=== PATIENT | female | born 1985 | race Caucasian/White ===

== ENCOUNTER 2025-02-04 07:16 | Day surgery (SDC) | payer OTHER, SELFPAY ==
--- NOTE | 2025-01-27 14:22 | PCM.HP.BLA ---
History and Physical Date of Admission: 02/04/25 HPI: The patient is a 39 year old female presenting for pre-operative visit. She is scheduled for hysteroscopy D&C with IUD Insertion, for aub and submucosal fibroid on 02/04/25. Procedure discussed along with risks, benefits and complications. Other alternatives discussed for management. Consent form signed? Yes. PAST MEDICAL HISTORY History reviewed. No pertinent past medical history. PAST SURGICAL HISTORY PAST SURGICAL HISTORYProcedureLateralityDate•NONE CURRENT MEDICATIONS Current Outpatient MedicationsMedicationSigDispenseRefill•ergocalciferol 50,000 unit capsule (VITAMIN D2, DRISDOL) •norgestimate-ethinyl estradiol (SPRINTEC) 0.25-0.035 mg tabletTake 1 tablet by mouth once daily.84 tablet4•ascorbic acid (VITAMIN C ORAL)Take by mouth once daily. •MAGNESIUM ORALTake by mouth once daily. •elderberry fruit (ELDERBERRY ORAL)Take by mouth once daily. •miSOPROStol (CYTOTEC) 200 mcg tabletInsert 2 tablets vaginally night prior to EMB and 2 tablets morning of procedure. Each dose should be in vagina for 6-8 hours.4 tablet0 No current facility-administered medications for this visit. ALLERGIES: Patient has no known allergies. PERSONAL HISTORY: [SOCIAL HISTORY] [SOCIAL HISTORY] Social History Tobacco Use • Smoking status: Former • Smokeless tobacco: Never Vaping Use • Vaping status: Never Used Substance Use Topics • Alcohol use: Yes Comment: occasional • Drug use: Not Currently FAMILY HISTORY: FAMILY HISTORY FAMILY HISTORY ProblemRelationAge of Onset•HypertensionMother •No Known ProblemsFather •No Known ProblemsSister •HypertensionMaternal Grandmother •Crohn's DiseaseMaternal Grandfather •No Known ProblemsPaternal Grandmother •No Known ProblemsPaternal Grandfather REVIEW OF SYMPTOMS: GENERAL: denies fevers or chills ENDOCRINOLOGY: has not been on steroids Cardiology : denies palpitations or chest pain Respiratory: denies SOB or cough Hematology: denies history of prolonged bleeding or easy bruising or VTE Allergy: Denies history of personal or family history of allergy to anesthesia PHYSICAL EXAMINATION: VITALS: Blood pressure 116/64, pulse 81, height 170.2 cm (5' 7"), weight 97.5 kg (215 lb), last menstrual period 01/19/2025, SpO2 98%. GENERAL: The patient is well nourished, well hydrated in no acute distress. , The patient is oriented to time, place, and person. NECK: Supple. No lynphadenopathy, normal thyroid, no thyromegaly. LUNGS: Clear to auscultation bilaterally. no wheezes, rhonchi or rales HEART: Regular rate and rhythm, Normal heart sounds, and No murmurs or gallops Pelvic US: Impression The uterus is anteverted and measures 96 mm x 36 mm x 49 mm. The endometrial thickness is 9 mm. There is a submucous, visualized without fluid enhancement, fibroid that measures 12 mm x 9 mm x 11 mm. The right ovary measures 36 mm x 18 mm x 16 mm. The left ovary measures 25 mm x 22 mm x 19 mm and contains a 21 mm x 20 mm x 19 mm bilocular cyst (single avascular septation) with smooth borders. IMPRESSION: submucosal uterine fibroid, abnormal uterine bleeding and IUD insertion PLAN: The risks/benefits/alternatives and personal involved for the planned hysteroscopy D&C with fibroid resection and IUD insertion were reviewed with the patient. Her questions were answered to her satisfaction and she desires to proceed. Consent was signed. I reviewed with her postop instructions and expectations. I have reviewed and updated past medical and surgical history, medications and allergies Assessment & Plan Assessment/Plan (1) Submucous uterine fibroid: (2) Menorrhagia with regular cycle: (3) Encounter for IUD insertion:
[2025-02-04] VITALS (9 sets, daily range): BP systolic 108–129; BP diastolic 58–83; PULSE 60–79; RESP 16–18; TEMP 36.2–36.7; O2SAT 94–100; BMI 32.8
--- OUTSIDE RECORDS SUMMARY | 2025-02-04 07:36 | XMS RPT_ITS | CCD ---
Author Organization [facility] Inform ion Partnership [facility] Care Team Providers Care Delinquency Prevention Social Worker Name Role Phone zEntity, Lab Wellness Unavailable Unavailabl e Unavailable Primary Care Provider Unavailabl e Unavailable Primary Care Provider Unavailabl e Unavailable Primary Care Provider Unavailabl e JOCELYNE ABRAHAM Referring Unavailable JOCELYNE ABRAHAM Attending Unavailable CONNER CARRERO Attending Unavailable NANY BONILLA Attending Unavailable JOCELYNE ABRAHAM Referring Unavailable JOCELYNE ABRAHAM Referring Unavailable Conner Carrero Referring Unavailable Conner Carrero Attending Unavailable Care Physician, No Primary Primary Care Unava ilable Medications Current Medications Medication Drug Class(es) Dates Sig (Normalized) Sig (Original) Ascorbic Acid (3 sources) Vitamin C ascorbic acid (V ITAMIN C ORAL) Take by mouth once daily. Active ascorbic acid (V ITAMIN C ORAL) Take by mouth once daily. 0 Active ELDERBERRY FRUIT (3 sources) elderberry fruit (ELDERBERRY ORAL) Take by mouth once daily. Active elderberry fruit (ELDERBERRY ORAL) Take by mouth once daily. 0 Active Ethinyl Estradiol / norgestimate (8 sources) Progestin, Estrogen Start: 11-19-2024 norgestimate-ethinyl estradiol (SPRINTEC) 0.25-0.035 mg tablet Indications: Encounter for gynecological examination with abnormal finding , Surveillance for control, oral contraceptives Take 1 tablet by mouth once daily. 84 tablet 4 11/19/2024 Active Start: 11-15-2023 End: 11-19-2024 take 1 tablet by mouth once daily norgestimate 0.25 mg-ethinyl estradiol 35 mcg (SPRINTEC) 0.25-35 mg-mcg per tablet Indications: Encounter for gynecological examination (general) (routine) without abnormal findings , Surveillance for control, oral contraceptives Take 1 tablet by mouth once daily. 84 tablet 4 11/15/2023 11/19/2024 Discontinued Start: 11-15-2023 take 1 tablet by yue th once daily norgestimate 0.25 mg-ethinyl estradiol 35 mcg (SPRINTEC) 0.25-35 mg-mcg per tablet Indications: Encounter for gynecological examination (general) (routine) without abnormal findings , Surveillance for control, oral contraceptives Take 1 tablet by mouth once daily. 84 tablet 4 11/15/2023 Active Start: 10-07-2023 End: 11-15-2023 take 1 tablet by mouth once daily norgestimate 0.25 mg-ethinyl estradiol 35 mcg (SPRINTEC) 0.25-35 mg-mcg per tablet Indications: Encounter for gynecological examination (general) (routine) without abnormal findings , Surveillance for control, oral contraceptives Take 1 tablet by mouth once daily. 84 tablet 0 10/07/2023 11/15/2023 Discontinued Start: 10-10-2022 take 1 tablet by yue th once daily norgestimate 0.25 mg-ethinyl estradiol 35 mcg (SPRINTEC) 0.25-35 mg-mcg per tablet Indications: Encounter for gynecological examination (general) (routine) without abnormal findings , Surveillance for control, oral contraceptives Take 1 tablet by mouth once daily. 84 tablet 4 10/10/2022 Active Start: 08-22-2021 End: 10-10-2022 take 1 tablet by mouth once daily norgestimate 0.25 mg-ethinyl estradiol 35 mcg (SPRINTEC) 0.25-35 mg-mcg per tablet Indications: Surveillance for control, oral contraceptives Take 1 tablet by mouth once daily. 84 tablet 4 08/22/2021 10/10/2022 Discontinued Start: 08-22-2021 take 1 tablet by yue th once daily norgestimate 0.25 mg-ethinyl estradiol 35 mcg (SPRINTEC) 0.25-35 mg-mcg per tablet Indications: Surveillance for control, oral contraceptives Take 1 tablet by mouth once daily. 84 tablet 4 08/22/2021 Active Comment on above: Take 1 tablet by yue th once daily. Magnesium (3 sources) MAGNESIUM ORAL T catarina by mouth once daily. Active MAGNESIUM ORAL T catarina by mouth once daily. 0 Active miSOPROStol 0.2 mg oral tablet (2 sources) Prostaglandin E1 Analog Start: 11-19-2024 miSOPR OStol (CYTOTEC) 200 mcg tablet Indications: Abnormal uterine bleeding (AUB) Insert 2 tablets vaginally night prior to EMB and 2 tablets morning of procedure. Each dose should be in vagina for 6-8 hours. 4 tablet 11/19/2024 Active Completed/Discontinued Medications Medication Drug Class(es) Dates Sig (Normalized) Sig (Original) ASHWAGANDHA ROOT EXTRACT ORAL (2 sources) End: 11-19-2024 ASHWAGANDHA ROOT EXTRACT ORAL Take by mouth once daily. gummy 11/19/2024 Discontinued ASHWAGANDHA ROOT EXTRACT ORAL Take by mouth once daily. gummy 0 Active Problems Problem Classification Problem Date Documented Date Episodic/Chronic Abdominal pain (2 sources) Pain in pelvis; Translations: [Pelvic and perineal pain] Onset: 11-19-2024 11-19-2024 Episodic Benign neoplasm of uterus (5 sources) Submucous leiomyoma of uterus; Translations: [Submucous leiomyoma of uterus] Onset: 12-08-2024 12-08-2024 Episodic Contraceptive and procreative management (5 sources) Oral contraception; Translations: [Encounter for surveillance of contraceptive pills] Onset: 11-19-2024 10-10-2022 Episodic Immunizations and screening for infectious disease (1 source) Patient encounter status; Translations: [Encounter for screening for infections with a predominantly sexual mode of transmission] Episodic Menstrual disorders (5 sources) Secondary dysmenorrhea; Translations: [Secondary dysmenorrhea] Onset: 11-19-2024 11-19-2024 Chronic Other female genital disorders (4 sources) Abnormal uterine bleeding; Translations: [Abnormal uterine and vaginal bleeding, unspecified] 11-19-2024 Chronic Other female genital disorders (1 source) Abnormal uterine and vaginal bleeding, unspecified; Translations: [Abnormal uterine bleeding (AUB)] Onset: 11-19-2024 Chronic Other nutritional; endocrine; and metabolic disorders (1 source) Obesity; Translations: [Obesity, unspecified] 10-10-2022 Chronic Ovarian cyst (2 sources) Complex cyst of left ovary; Translations: [Other ovarian cyst, left side] Onset: 12-08-2024 12-08-2024 Episodic Viral infection (1 source) Genital warts; Translations: [Anogenital (venereal) warts] Episodic Results Test Name Value Interpretation Reference Range Facility [facility] 01-27-2025 CNOV Office Visit (OBGYWM ) BILLIEJEN ([id number]) 1985 F Date Time Provider Department 01/27/25 8:30 AM CONNER CARRERO OBGYWM During your visit today, we recorded the following information about you: Pulse Blood pressure Weight Height 81/minute 116/64 97.5 kg 1.702 m Last Period 01/19/25 Conner Carrero MD 01/27/2025 2:21 PM Signed Pre-Op History and Physical HPI: The patient is a 39 year old female presenting for pre-operative visit. She is scheduled for hysteroscopy [facility] with IUD Insertion, for aub and submucosal fibroid on 02/04/25. Procedure discussed along with risks, benefits and complications. Other alternatives discussed for management. Consent form signed? Yes. History reviewed. No pertinent past medical history. PAST SURGICAL HISTORY Procedure Laterality Date NONE Current Outpatient Medications Medication Sig Dispense Refill ergocalciferol 50,000 unit capsule (VITAMIN D2, DRISDOL) norgestimate-ethinyl estradiol (SPRINTEC) 0.25-0.035 mg tablet Take 1 tablet by mouth once daily. 84 tablet 4 ascorbic acid (VITAMIN C ORAL) Take by mouth once daily. MAGNESIUM ORAL Take by mouth once daily. elderberry fruit (ELDERBERRY ORAL) Take by mouth once daily. miSOPROStol (CYTOTEC) 200 mcg tablet Insert 2 tablets vaginally night prior to EMB and 2 tablets morning of procedure. Each dose should be in vagina for 6-8 hours. 4 tablet 0 No current facility-administered medications for this visit. ALLERGIES: Patient has no known allergies. PERSONAL HISTORY: SOCIAL HISTORY[1] FAMILY HISTORY: FAMILY HISTORY Problem Relation Age of Onset Hypertension Mother No Known Problems Father No Known Problems Sister Hypertension Maternal Grandmother Crohn's Disease Maternal Grandfather No Known Problems Paternal Grandmother No Known Problems Paternal Grandfather REVIEW OF SYMPTOMS: GENERAL: denies fevers or chills ENDOCRINOLOGY: has not been on steroids Cardiology : denies palpitations or chest pain Respiratory: denies SOB or cough Hematology: denies history of prolonged bleeding or easy bruising or VTE Allergy: Denies history of personal or family history of allergy to anesthesia PHYSICAL EXAMINATION: VITALS: Blood pressure 116/64, pulse 81, height 170.2 cm (5' 7"), weight 97.5 kg (215 lb), last menstrual period 01/19/2025, SpO2 98%. GENERAL: The patient is well nourished, well hydrated in no acute distress. , The patient is oriented to time, place, and person. NECK: Supple. No lynphadenopathy, normal thyroid, no thyromegaly. LUNGS: Clear to auscultation bilaterally. no wheezes, rhonchi or rales HEART: Regular rate and rhythm, Normal heart sounds, and No murmurs or gallops Pelvic US: Impression The uterus is anteverted and measures 96 mm x 36 mm x 49 mm. The endometrial thickness is 9 mm. There is a submucous, visualized without fluid enhancement, fibroid that measures 12 mm x 9 mm x 11 mm. The right ovary measures 36 mm x 18 mm x 16 mm. The left ovary measures 25 mm x 22 mm x 19 mm and contains a 21 mm x 20 mm x 19 mm bilocular cyst (single avascular septation) with smooth borders. IMPRESSION: submucosal uterine fibroid, abnormal uterine bleeding and IUD insertion PLAN: The risks/benefits/alternatives and personal involved for the planned hysteroscopy [facility] with fibroid resection and IUD insertion were reviewed with the patient. Her questions were answered to her satisfaction and she desires to proceed. Consent was signed. I reviewed with her postop instructions and expectations. I have reviewed and updated past medical and surgical history, medications and allergies Conner Carrero M.D. [1] Social History Tobacco Use Smoking status: Former Smokeless tobacco: Never Vaping Use Vaping status: Never Used Substance Use Topics Alcohol use: Yes Comment: occasional Drug use: Not Currently Conner Carrero MD 01/27/2025 2:21 PM Signed Obstetrics and Gynecology [place] [employer] Visit Subjective Recording using ambient Jobzella software for draft documentation of the visit was discussed with the patient/authorized safety representative; all questions welcomed and answered. Patient/authorized safety representative agreed to proceed CHIEF COMPLAINT: The patient is a 39-year-old female with uterine fibroids and menorrhagia, presenting for preoperative evaluation and scheduled hysteroscopic myomectomy with levonorgestrel-releasing IUD placement. HPI: The patient is a 39-year-old female with a history of heavy menstrual bleeding and fibroids presenting for a pre-operative consultation. Menstrual History - Reports a change in menstrual flow since September, with periods previously lasting 4-5 days and being regular to light. - Over the past few months, periods have become "heavy to regular." - Currently experiencing prolonged bleeding, stating, I started last (more content not included)... Normal [facility] HISTORY PHYSICALon HISTORY PHYSICAL HNO ID: [id number] Author: CONNER CARRERO MD Service: ? Author Type: Physician Type: H&P Filed: 01/27/2025 14:21 Note Text: Pre-Op History and Physical HPI: The patient is a 39 year old female presenting for pre-operative visit. She is scheduled for hysteroscopy [facility] with IUD Insertion, for aub and submucosal fibroid on 02/04/25. Procedure discussed along with risks, benefits and complications. Other alternatives discussed for management. Consent form signed? Yes. History reviewed. No pertinent past medical history. PAST SURGICAL HISTORY Procedure Laterality Date NONE Current Outpatient Medications Medication Sig Dispense Refill ergocalciferol 50,000 unit capsule (VITAMIN D2, DRISDOL) norgestimate-ethinyl estradiol (SPRINTEC) 0.25-0.035 mg tablet Take 1 tablet by mouth once daily. 84 tablet 4 ascorbic acid (VITAMIN C ORAL) Take by mouth once daily. MAGNESIUM ORAL Take by mouth once daily. elderberry fruit (ELDERBERRY ORAL) Take by mouth once daily. miSOPROStol (CYTOTEC) 200 mcg tablet Insert 2 tablets vaginally night prior to EMB and 2 tablets morning of procedure. Each dose should be in vagina for 6-8 hours. 4 tablet 0 No current facility-administered medications for this visit. ALLERGIES: Patient has no known allergies. PERSONAL HISTORY: SOCIAL HISTORY[1] FAMILY HISTORY: FAMILY HISTORY Problem Relation Age of Onset Hypertension Mother No Known Problems Father No Known Problems Sister Hypertension Maternal Grandmother Crohn's Disease Maternal Grandfather No Known Problems Paternal Grandmother No Known Problems Paternal Grandfather REVIEW OF SYMPTOMS: GENERAL: denies fevers or chills ENDOCRINOLOGY: has not been on steroids Cardiology : denies palpitations or chest pain Respiratory: denies SOB or cough Hematology: denies history of prolonged bleeding or easy bruising or VTE Allergy: Denies history of personal or family history of allergy to anesthesia PHYSICAL EXAMINATION: VITALS: Blood pressure 116/64, pulse 81, height 170.2 cm (5' 7"), weight 97.5 kg (215 lb), last menstrual period 01/19/2025, SpO2 98%. GENERAL: The patient is well nourished, well hydrated in no acute distress. , The patient is oriented to time, place, and person. NECK: Supple. No lynphadenopathy, normal thyroid, no thyromegaly. LUNGS: Clear to auscultation bilaterally. no wheezes, rhonchi or rales HEART: Regular rate and rhythm, Normal heart sounds, and No murmurs or gallops Pelvic US: Impression The uterus is anteverted and measures 96 mm x 36 mm x 49 mm. The endometrial thickness is 9 mm. There is a submucous, visualized without fluid enhancement, fibroid that measures 12 mm x 9 mm x 11 mm. The right ovary measures 36 mm x 18 mm x 16 mm. The left ovary measures 25 mm x 22 mm x 19 mm and contains a 21 mm x 20 mm x 19 mm bilocular cyst (single avascular septation) with smooth borders. IMPRESSION: submucosal uterine fibroid, abnormal uterine bleeding and IUD insertion PLAN: The risks/benefits/alternatives and personal involved for the planned hysteroscopy [facility] with fibroid resection and IUD insertion were reviewed with the patient. Her questions were answered to her satisfaction and she desires to proceed. Consent was signed. I reviewed with her postop instructions and expectations. I have reviewed and updated past medical and surgical history, medications and allergies Conner Carrero M.D. [1] Social History Tobacco Use Smoking status: Former Smokeless tobacco: Never Vaping Use Vaping status: Never Used Substance Use Topics Alcohol use: Yes Comment: occasional Drug use: Not Currently Normal [facility] ([id number]) 1985 F Date Time Provider Department 12/29/24 NANY BONILLA During your visit today, we recorded the following information about you: RamosMarisa 12/29/2024 2:43 PM Signed Patient called the office for status update on scheduling her surgery. She states that she was to be contacted by the office last week. Please contact patient to assist. Jen Mccallum RN 12/29/2024 2:52 PM Signed Called and spoke to patient. Advised that surgery scheduling is taking a little more time with the volume of surgery cases with it being the end of the year. Aware the spares scheduler will reach out to her with the next available dates. GENI Quiñonez Annalee, LPN 12/30/2024 2:37 PM Signed Patient preferred a for surgery and is scheduled on 02/04/2025 Allergies As of Date: 12/29/2024 (No Known Allergies) Date Reviewed: 12/17/2024 Reviewed by: Nany Bonilla MD - Fully Assessed Reason for Visit: Appointment [[id number]] Cmt: Schedule Surgery Prescriptions as of 01/12/2025 - norgestimate-ethinyl estradiol (SPRINTEC) 0.25-0.035 mg tablet Take 1 tablet by mouth once daily. - miSOPROStol (CYTOTEC) 200 mcg tablet Insert 2 tablets vaginally night prior to EMB and 2 tablets morning of procedure. Each dose should be in vagina for 6-8 hours. - ascorbic acid (VITAMIN C ORAL) Take by mouth once daily. - MAGNESIUM ORAL Take by mouth once daily. - elderberry fruit (ELDERBERRY ORAL) Take by mouth once daily. Problem List As Of Date 12/29/2024 Noted Resolved Complex cyst of left ovary [N83.292] 12/08/2024 Submucous uterine fibroid [D25.0] 12/08/2024 Encounter Status:Closed by BLOSSOM LONG on 01/12/25 Normal [facility] CNOVon 12-17-2024 CNOV Office Visit (OBGYWM ) JEN WISE ([id number]) 1985 F Date Time Provider Department 12/17/24 2:50 PM NANY BONILLA OBGYWM During your visit today, we recorded the following information about you: Blood pressure Weight 120/80 96.8 kg Nany Bonilla MD 12/17/2024 2:57 PM Signed Obstetrics and Gynecology [place] [employer] Visit Subjective Recording using FarmBot software for draft documentation of the visit was discussed with the patient/authorized safety representative; all questions welcomed and answered. Patient/authorized safety representative agreed to proceed CHIEF COMPLAINT: The patient is a 39-year-old female presenting for evaluation of heavy menstrual bleeding and intermenstrual spotting secondary to a submucosal uterine fibroid. HPI: The patient is a 39-year-old female presenting for evaluation of heavy menstrual bleeding and intermenstrual bleeding. Menstrual History - Reports heavy menstrual bleeding and intermenstrual bleeding since June or July. - During her annual exam with Jocelyne Abraham, she reported heavy bleeding and bleeding between menstrual cycles. Past Diagnostic Results - Pelvic ultrasound: Revealed a submucous fibroid measuring 12mm x 9mm x 11mm. HISTORY: OB History Gravida1 Para0 Term0 Preterm0 AB0 Living1 SAB0 IAB0 Ectopic0 Multiple0 Live Births1 [employer] History LMP: 11/06/2024, Having periods Age at Menarche: 13 Age at First : Age at Menopause: [employer] History Comments: Sexual Activity: Yes; Male Contraception: Pill Menstrual Tracking History Flowsheet Row Office Visit from 11/19/2024 in OB/Gynecology Period Cycle (Days) 5 Period Duration (Days) 5 Menstrual Flow Heavy No past medical history on file. PAST SURGICAL HISTORY Procedure Laterality Date NONE FAMILY HISTORY Problem Relation Age of Onset Hypertension Mother No Known Problems Father No Known Problems Sister Hypertension Maternal Grandmother Crohn's Disease Maternal Grandfather No Known Problems Paternal Grandmother No Known Problems Paternal Grandfather SOCIAL HISTORY[1] Current Outpatient Medications Medication Sig norgestimate-ethinyl estradiol (SPRINTEC) 0.25-0.035 mg tablet Take 1 tablet by mouth once daily. ascorbic acid (VITAMIN C ORAL) Take by mouth once daily. MAGNESIUM ORAL Take by mouth once daily. elderberry fruit (ELDERBERRY ORAL) Take by mouth once daily. miSOPROStol (CYTOTEC) 200 mcg tablet Insert 2 tablets vaginally night prior to EMB and 2 tablets morning of procedure. Each dose should be in vagina for 6-8 hours. No current facility-administered medications for this visit. ALLERGIES No Known Allergies REVIEW OF SYSTEMS: Genitourinary: (+) heavy menstrual bleeding, (+) intermenstrual bleeding Objective SENSITIVE EXAM: Sensitive exam not performed. PHYSICAL EXAM: BP 120/80 Wt 213 lb 6.4 oz (96.8kg) LMP 11/06/2024 GENERAL: Pleasant; in no acute distress Assessment AND Plan ASSESSMENT AND PLAN: 1. Submucous leiomyoma of uterus (D25.0) 2. Abnormal uterine and vaginal bleeding, unspecified (N93.9) - Submucous fibroid ([id number] mm) identified on ultrasound; likely etiology of abnormal uterine bleeding since June or July. - Recommended hysteroscopic myomectomy with endometrial sampling; discussed rationale for surgical removal over blind biopsy. - Discussed option to place Mirena or Liletta IUD during procedure to address potential hormonal causes of bleeding. - Patient expressed understanding and agreement with plan. - Surgical scheduling to be coordinated with Dr. Carrero at [facility]; preoperative visit to occur within 30 days of surgery. - Advised patient on expected recovery time and [id number] guidance. Medical Decision Making: Problems: Moderate: New problem with uncertain prognosis Data: Unique source(s) for external note(s) reviewed: 1 Unique test result(s) reviewed: 1 Risk: Moderate: Moderate risk from testing/treatment Medical Decision Making Level: 4 - Moderate Nany Bonilla MD [1] Social History Tobacco Use Smoking status: Former Smokeless tobacco: Never Vaping Use Vaping status: Never Used Substance Use Topics Alcohol use: Yes Comment: occasional Drug use: Not Currently Nany Bonilla MD 12/17/2024 2:55 PM Signed - You are scheduled for a hysteroscopic procedure to remove the 12 ? 9 ? 11 mm submucosal fibroid, sample your uterine lining, and place a progesterone IUD (Mirena or Liletta) under anesthesia. - My office will send a surgical referral sheet to either Dr. Carrero and their scheduling team will call you within the next week to set the date and time. - You will have a preoperative visit with the surgeon within 30 days before your procedure. - Plan to take the day of surgery and the following day off work; you can likely return the next Saturday. If you need additional recovery (more content not included)... Normal [facility] CBC panel Auto (Bld)on 11-19 Erythrocyte distribution width (RBC) [Ratio] 13.3 % 11.5 - 15.0 % [facility] Hematocrit (Bld) [Volume fraction] 38.2 % 36.0 - 46.0 % [facility] Hemoglobin (Bld) [Mass/Vol] 12.6 g/dL 11.5 - 15.5 g/dL [facility] Interpretation and review of laboratory results Normal [facility] MCH (RBC) [Entitic mass] 29.1 pg 26.0 - 34.0 pg [facility] MCHC (RBC) [Mass/Vol] 33.0 g/dL 30.5 - 36.0 g/dL [facility] MCV (RBC) [Entitic vol] 88.2 fL 80.0 - 100.0 fL [facility] Nucleated RBC (Bld) [#/Vol] NINF [facility] Platelet mean volume (Bld) [Entitic vol] 12.4 fL 9.0 - 12.7 fL [facility] Platelets (Bld) [#/Vol] 184 10*3/uL [facility] RBC (Bld) [#/Vol] 4.33 10*6/uL 3.90 - 5.2 0 m/uL [facility] WBC (Bld) [#/Vol] 9.36 10*3/uL [facility] Erythrocyte distribution width (RBC) [Ratio] 13.3 % Normal 11.5-15.0 [facility] Comment on above: Order Comment: Speci men Type: BLOOD SPECIMEN Ordering Facility: [facility] Address: [address] [place] [address] Performed By: #### 5 8410-2 #### [facility] CLIA [id number] [address] [place] [address] [place] Hematocrit (Bld) [Volume fraction] 38.2 % Normal 36.0-46.0 [facility] Comment on above: Order Comment: Speci men Type: BLOOD SPECIMEN Ordering Facility: [facility] Address: [address] [place] [address] Performed By: #### 5 8410-2 #### [facility] CLIA [id number] [address] [place] [address] [place] Hemoglobin (Bld) [Mass/Vol] 12.6 g/dL Normal 11.5-15.5 [facility] Comment on above: Order Comment: Speci men Type: BLOOD SPECIMEN Ordering Facility: [facility] Address: [address] [place] [address] Performed By: #### 5 8410-2 #### [id number] [address] [place] [address] [place] MCH (RBC) [Entitic mass] 29.1 pg Normal 26.0-34.0 [facility] Comment on above: Order Comment: Speci men Type: BLOOD SPECIMEN Ordering Facility: [facility] Address: [address] [place] [address] Performed By: #### 5 8410-2 #### [facility] [id number] [address] [place] [address] [place] MCHC (RBC) [Mass/Vol] 33.0 g/dL Normal 30.5-36.0 [facility] Comment on above: Order Comment: Speci men Type: BLOOD SPECIMEN Ordering Facility: [facility] Address: [address] [place] [address] Performed By: #### 5 8410-2 #### [facility] [id number] [address] [place] [address] [place] MCV (RBC) [Entitic vol] 88.2 fL Normal 80.0-100.0 [facility] Comment on above: Order Comment: Speci men Type: BLOOD SPECIMEN Ordering Facility: [facility] Address: [address] [place] [address] Performed By: #### 5 8410-2 #### [facility] CLIA [id number] [address] [place] [address] [place] Nucleated RBC (Bld) [#/Vol] 10*3/uL Normal <0.01 [facility] Comment on above: Order Comment: Speci men Type: BLOOD SPECIMEN Ordering Facility: [facility] Address: [address] [place] [address] Performed By: #### 5 8410-2 #### [facility] CLIA [id number] [address] [place] [address] [place] Platelet mean volume (Bld) [Entitic vol] 12.4 fL Normal 9.0-12.7 [facility] Comment on above: Order Comment: Speci men Type: BLOOD SPECIMEN Ordering Facility: [facility] Address: [address] [place] [address] Performed By: #### 5 8410-2 #### [facility] CLIA [id number] [address] [place] [address] [place] Platelets (Bld) [#/Vol] 184 10*3/uL Normal 150-400 [facility] Comment on above: Order Comment: Speci men Type: BLOOD SPECIMEN Ordering Facility: [facility] Address: [address] [place] [address] Performed By: #### 5 8410-2 #### [facility] CLIA [id number] [address] [place] [address] [place] RBC (Bld) [#/Vol] 4.33 10*6/uL Normal 3.90-5.20 [facility] Comment on above: Order Comment: Speci men Type: BLOOD SPECIMEN Ordering Facility: [facility] Address: [address] [place], [place] [address] Performed By: #### 5 8410-2 #### [facility] CLIA [id number] [address] [place] [address] [place] WBC (Bld) [#/Vol] 9.36 10*3/uL Normal 3.70-11.00 [facility] Comment on above: Order Comment: Speci men Type: BLOOD SPECIMEN Ordering Facility: [facility] Address: [address] [place], [place] [address] Performed By: #### 5 8410-2 #### [facility] CLIA [id number] [address] [place] [address] OF [place] CNOVon 11-19-2024 CNOV Office Visit (OBGYWM ) JEN WISE ([id number]) 1985 F Date Time Provider Department 11/19/24 3:00 PM JOCELYNE ABRAHAM During your visit today, we recorded the following information about you: Blood pressure Weight Height Last Period 124/86 96.2 kg 1.7 m 11/06/24 Jocelyne Abraham APRN.EDGING MACHINE CATCHER 11/19/2024 3:56 PM Signed Jewel 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 Traore is a 39 year old who presents for an annual gynecologic exam with complaints, heavy bleeding, dysmenorrhea, and breakthrough bleeding. Heavy Menstrual Bleeding: - Patient reports a significant increase in menstrual bleeding over the past 4-5 months. - Previously, her menstrual cup would be less than a quarter full after several hours; now, it is almost full after about seven hours. - No clots reported. - Has noticed fatigue, denies lightheadedness Cramping and Pelvic Pain: - Has a history of severe back cramps but now experiences new, stabbing abdominal pain during menstruation. - Describes sharp, intermittent pain on both sides during menstrual cramping. Breakthrough Bleeding: - Experiences intermittent spotting, particularly during bowel movements. - Denies constipation. Still get period: Yes Menses: cycles every 28 days and 4-5 days of flow. Bleeding amount bothersome: Yes Bleeding between periods: Yes Period symptoms: Acne; Breast tenderness; Cramps; Mood change; Pelvic pain Contraception: combined hormonal contraceptives HPV vaccine: No Last Pap: normal 09/21/2020 HPV: Negative 09/21/2020 History of abnormal pap: No Last mammogram: never Sexually active: Yes History of STDS: None Patient concerns for STD exposure: No. Time with current partner: 4 years Pain with intercourse: - One instance of pain during intercourse about four months ago; otherwise, no pain or bleeding reported. Postcoital bleeding: No Bothersome pelvic pain: Yes Documentation from previous visit of 10/10/2022 was copied and pasted, documentation has been reviewed and edited as necessary for today's visit. OB History Gravida1 Para0 Term0 Preterm0 AB0 Living1 SAB0 IAB0 Ectopic0 Multiple0 Live Births1 Ventilator Specialist History LMP: 11/06/2024, Having periods Age at Menarche: 13 Age at First : Age at Menopause: Ventilator Specialist History Comments: Sexual Activity: Yes; Male Contraception: Pill Menstrual Tracking History Flowsheet Row Office Visit from 11/19/2024 in OB/Gynecology Period Cycle (Days) 5 Period Duration (Days) 5 Menstrual Flow Heavy PAST MEDICAL HISTORY Diagnosis Date Coitus painful for female June PAST SURGICAL HISTORY Procedure Laterality Date NONE FAMILY HISTORY Problem Relation Age of Onset No Known Problems Mother No Known Problems Father No Known Problems Sister Hypertension Maternal Grandmother Crohn's Disease Maternal Grandfather No Known Problems Paternal Grandmother No Known Problems Paternal Grandfather SOCIAL HISTORY Social History Tobacco Use Smoking status: Former Smokeless tobacco: Never Vaping Use Vaping status: Never Used Substance Use Topics Alcohol use: Yes Comment: occasional Drug use: Not Currently REVIEW OF SYSTEMS Abdomen: No abdominal pain, nausea, vomiting, diarrhea, or constipation. No bloating, early satiety, indigestion, or increased flatulence. Bladder: No dysuria, gross hematuria, urinary frequency, urinary urgency, or incontinence. Breast: No breast lumps, nipple d/c, overlying skin changes, redness or skin retraction. Allergies and current medication updated:Yes SENSITIVE EXAM: The sensitive examination was discussed with the Patient or Patient's Authorized Cooker Chip. As applicable, any other physician, advance practice provider, medical student, or other health professional student that will be observing or involved in the sensitive examination for educational or training purposes was discussed with the Patient or Authorized Cooker Chip. The Patient or Authorized Cooker Chip has agreed to proceed with the sensitive examination. (Sensitive examination includes inspection and/or palpation of the breasts, pelvis, prostate and anorectal regions). EXAM: BP 124/86 Ht 5' 6.929" (1.70m) Wt 212 lb (96.2kg) LMP 11/06/2024 BMI 33.27 kg/(m2). GENERAL: pleasant, female in no apparent distress HEENT: Normocephalic, atraumatic, mucus membranes moist, and no lesions NECK: Supple, full range of motion, no adenopathy, and thyroid normal DERMATOLOGY: Normal, without lesions, non-icteric, and non-hirsute BREAST: soft, non-tender, symmetric, no dominant mass, normal nipple-areolar complex, no lymphadenopathy, and no nipple discharge CHEST: Normal inspiratory effort ABDOMEN: soft, non-tender, and no masses PELVIC: external genitalia normal, normal Bartholin's glands, urethra, Dahlgren's glands, no vulvar lesions, no cervical lesions, phys (more content not included)... Normal [facility] HIGH RISK HUMAN PAPILLOMA NELL (HPV), PCR FOR DETECTION AND GENOTYPINGon 11-19-2024 HPV 16 Ag Ql (Unsp spec) Not detected Normal Not detected [facility] Comment on above: Order Comment: Speci men Type: FLUID SPECIMEN Ordering Facility: [facility] Address: [address] [place] [address] Performed By: #### H PVHRT #### [facility] CLIA [id number] [address] [place] [address] [place] [address] [place] HPV 18 Ag Ql (Unsp spec) Not detected Normal Not detected [facility] Comment on above: Order Comment: Speci men Type: FLUID SPECIMEN Ordering Facility: [facility] Address: [address] [place] [address] Performed By: #### H PVHRT #### [facility] CLIA [id number] [address] [place] [address] [place] HPV 31+33+35+39+45+51+ 52+56+58+59+66+68 DNA EDGAR+probe Ql (Cvx) Not detected Normal Not detected [facility] Comment on above: Order Comment: Speci men Type: FLUID SPECIMEN Ordering Facility: [facility] Address: [address] [place] [address] Result Comment: High Risk HPV Other Type includes HPV types 31, 33, 35, 39, 45, 51, 52, 56, 58, 59, 66 and 68. Performed By: #### H PVHRT #### [facility] CLIA [id number] [address] [place] [address] [place] PAP TESTon 11-19-2024 ADEQUACY Normal [facility] Comment on above: Order Comment: Speci men Type: FLUID SPECIMEN Ordering Facility: [facility] Address: [address] [place] [address] Result Comment: Sati sfactory for interpretation. Transformation zone present Performed By: #### L [id number] #### [facility] CLIA [id number] [address] [place] [address] [place] [facility] CLIA [id number] [address] [place] [address] [place] CASE REPORT Normal [facility] Comment on above: Order Comment: Speci men Type: FLUID SPECIMEN Ordering Facility: [facility] Address: [address] [place] [address] Result Comment: Gyne cologic Cytology Report Case: [id number] Authorizing Provider: Jocelyne Abraham APRN.EDGING MACHINE CATCHER Collected: 11/19/2024 03:58 PM Ordering Location: OB/Gynecology Received: 11/19/2024 04:32 PM First Screen: Gladkaya, Rupal, CT, ASCP Rescreen: Leny, Jocelyne, CT, ASCP Specimen: Pap Test, ThinPrep, Cervix Performed By: #### L [id number] #### [facility] CLIA [id number] [address] [place] [address] LABORATORY CLIA [id number] [address] [place] [address] [place] CLINICAL HISTORY, CYTOLOGY, METAL CABINET FINISHER Abnormal Bleeding (Describe) Normal [facility] Comment on above: Order Comment: Speci men Type: FLUID SPECIMEN Ordering Facility: [facility] Address: [address] [place] [address] Result Comment: jhonathan enopausal Performed By: #### L [id number] #### [facility] CLIA [id number] [address] [place] [address] [place] [facility] CLIA [id number] [address] [place] [address] [place] [facility] Normal [facility] Comment on above: Order Comment: Speci men Type: FLUID SPECIMEN Ordering Facility: [facility] Address: [address] [place] [address] Result Comment: Tech nical component, roller coaster designer screening performed at: [facility], [address] [place] [address] CLIA: [id number] Diagnostic interpretation performed at: [facility], [address] [place] [address] CLIA# [id number] Records Custodian: Zaire Sy MD Performed By: #### L [id number] #### [facility] CLIA [id number] [address] [place] [address] [place] [facility] CLIA [id number] [address] [place] [address] [place] INTERPRETATION, CYTOLOGY, METAL CABINET FINISHER Normal [facility] Comment on above: Order Comment: Speci men Type: FLUID SPECIMEN Ordering Facility: [facility] Address: [address] [place] [address] Result Comment: Nega tive for intraepithelial lesion or malignancy. at 0831 EDT Performed By: #### L [id number] #### [facility] CLIA [id number] [address] [place] [address] [facility] CLIA [id number] [address] [place] [address] OF [place] LMP 11/06/2024 Normal [facility] Comment on above: Order Comment: Speci men Type: FLUID SPECIMEN Ordering Facility: [facility] Address: [address] [place] [address] Performed By: #### L [id number] #### [facility] CLIA [id number] [address] [place], [place] [address] CLIA [id number] [address] [place] [address] [place] PAP DISCLAIMER COMMENT The Pap Smear is a screening test for cervical cancer. False negative results occur with all screening tests, emphasizing the need for rescreening at recommended intervals, and clinical correlation. Normal [facility] Comment on above: Order Comment: Speci men Type: FLUID SPECIMEN Ordering Facility: [facility] Address: [address] [place] [address] Performed By: #### L [id number] #### [facility] CLIA [id number] [address] [place] [address] [facility] CLIA [id number] [address] [place] [address] [place] PAP LOADING UNIT TOOL SETTER COMMENT This specimen has be en analyzed by the FDA-approved [employer] System, which uses digital imaging and an enhanced artificial intelligence image analysis algorithm to identify mosley of interest on the microscopic slide, to assist the homemaker companion and pathologist in evaluating cells on ThinPrep Pap tests. Following analysis, mosley of interest on the microscopic slide selected by the algorithm are reviewed by a homemaker companion. If a sample requires hierarchical review, the pathologist will review the same mosley of interest selected by the algorithm prior to final interpretation. Normal [facility] Comment on above: Order Comment: Speci jasvir Type: FLUID SPECIMEN Ordering Facility: [facility] Address: [address] [place] [address] Performed By: #### L [id number] #### [facility] CLIA [id number] [address] [place] [address] [place] [facility] CLIA [id number] [address] [place] [address] [place] TSH SerPl-aCncon 11-19-2024 TSH Qn 1.190 m[IU]/L Normal 0.270-4.200 [facility] Comment on above: Order Comment: Melvin tay Type: FLUID SPECIMEN Ordering Facility: [facility] Address: [address] [place] [address] Result Comment: If t he patient is , TSH reference range varies by gestational period: First Trimester (weeks 9-12): 0.180-2.990 mIU/L Second Trimester: 0.110-3.980 mIU/L Third Trimester: 0.480-4.710 mIU/L Ravin Damian et al. A Practical Approach for the Verifications and Determination of Site- and Trimester-Specific Reference Intervals for Thyroid Function tests in . Thyroid, 2019:29:3:412-420. Santi E, et al. 2017 Guidelines of the [place] Thyroid Association for the Diagnosis and Management of Thyroid Disease during and the . Thyroid, 2017:27:3:315-389. Performed By: #### H PVHRT #### [facility] CLIA [id number] [address] [place] [address] [place] IG PAP CT/NG/TRICH HPV W/RFX on 09-26-2020 . . [facility] Comment on above: Result Comment: PERF [facility],NUC ACID AMP Negative [facility] Comment on above: Result Comment: Refe rence range: Negative DIAGNOSIS: Comment Normal [facility] Comment on above: Result Comment: NEGA TIVE FOR INTRAEPITHELIAL LESION OR MALIGNANCY. PERFORMED AT [facility] GONOCOCCUS,NUC ACID AMP Negative [facility] Comment on above: Result Comment: Refe rence range: Negative HPV Negative [facility] Comment on above: Result Comment: Refe rence range: Negative (NOTE) This nucleic acid amplification test detects fourteen high-risk HPV types (16,18,31,33,35,39,45,51,52,56,58,59,66,68) without differentiation. NOTE: Comment [facility] Comment on above: Result Comment: (NOT E) The Pap smear is a screening test designed to aid in the detection of premalignant and malignant conditions of the uterine cervix. It is not a diagnostic procedure and should not be used as the sole means of detecting cervical cancer. Both false-positive and false-negative reports do occur. PERFORMED AT [facility] PERFORMED BY: Comment [facility] Comment on above: Result Comment: Neelima Matthews Refrigeration Service Inspector (ASCP) PERFORMED AT [facility] SPECIMEN ADEQUACY: Comment [facility] Comment on above: Result Comment: (NOT E) Satisfactory for evaluation. Endocervical and/or squamous metaplastic cells (endocervical component) are present. PERFORMED AT [facility] TEST METHODOLOGY: Comment [facility] Comment on above: Result Comment: (NOT E) This liquid based ThinPrep(R) pap test was screened with the use of an image guided system. PERFORMED AT [facility] TRICH [place] BY [place]GAR Negative [facility] Comment on above: Result Comment: No. of containers..01 ThinPrep Vial Reference range: Negative PERFORMED AT [facility] Nicotine Survey, Serum-Mayoo n 01-24-2018 Cotinine [facility] <3.0 Normal <3.0 [facility] Comment on above: Result Comment: ---- ADDITIONAL INFORMATION This test was developed and its performance characteristicsdetermined by [facility] in a manner consistent with CLIArequirements. This test has not been cleared or approved bythe .[place]. Food and Drug Administration.Test Performed by:[facility] [facility], [place] [address] Performed By: #### C [id number] ####[facility] [place] [address] [facility] <3.0 Normal <3.0 [facility] Comment on above: Performed By: #### C [id number] ####[facility] [place] [address] .eGFRon 01-22-2018 eGFR Non-AA >60 Normal >=60 [facility] Comment on above: Result Comment: Resu lt = 0-14.9 mL/min/1.73 m2 Kidney failure or DialysisResult = 15-29 mL/min/1.73 m2 Severe decrease in GFRResult = 30-59 mL/min/1.73 m2 Moderate decrease in GFRResult >= 60 mL/min/1.73 m2 Normal or increased GFRChronic kidney disease is defined as either kidney damage or GFR < 60 mL/min/1.73 m2 for >= 3 months. Kidney damage is defined as pathologic abnormalities or markers of damage including abnormalities in blood or urine tests or imaging studies. This GFR is NOT used for medication dosing. Performed By: #### E GFR ####[address] [address] eGFR AA >60 Normal >=60 [facility] Comment on above: Result Comment: Resu lt = 0-14.9 mL/min/1.73 m2 Kidney failure or DialysisResult = 15-29 mL/min/1.73 m2 Severe decrease in GFRResult = 30-59 mL/min/1.73 m2 Moderate decrease in GFRResult >= 60 mL/min/1.73 m2 Normal or increased GFR Performed By: #### E GFR ####[address] [address] CBC w/ Diffon 01-22-2018 Erythrocyte distribution width Auto Ratio (RBC) 13.4 % Normal 11.6-14.8 [facility] Comment on above: Performed By: #### C BC ####[place] [id number] Hematocrit Auto Volume Fraction (Bld) 38.7 % Normal 36.0-46.0 [facility] Comment on above: Performed By: #### C BC ####[place] [id number] Hemoglobin mass conc (Bld) 13.0 g/dL Normal 12.0-16.0 [facility] Comment on above: Performed By: #### C BC ####[place] [id number] MCH Auto Entitic mass (RBC) 30.1 pg Normal 27.0-35.0 [facility] Comment on above: Performed By: #### C BC ####[place] [id number] MCHC Auto mass conc (RBC) 33.6 % Normal 31.0-37.0 [facility] Comment on above: Performed By: #### C BC ####[place] [id number] MCV Auto Entitic volume (RBC) 89.4 fL Normal 80.0-100.0 [facility] Comment on above: Performed By: #### C BC ####[place] [id number] Platelet mean volume Auto Entitic volume (Bld) 11.9 fL High 6.7-10.6 [facility] Comment on above: Performed By: #### C BC ####[place] [id number] Platelets Auto #/vol (Bld) 149 x10*3/mcL Low 150-350 [facility] Comment on above: Performed By: #### C BC ####[place] [id number] RBC Auto #/vol (Bld) 4.33 x10*6/mcL Normal 3.80-5.20 [facility] Comment on above: Performed By: #### C BC ####[place] [id number] WBC Auto #/vol (Bld) 8.1 x10*3/mcL Normal 4.5-11.0 [facility] Comment on above: Performed By: #### C BC ####[place] [address] CMPon 01-22-2018 Albumin mass conc 3.9 g/dL Normal 3.2-4.9 [facility] Comment on above: Result Comment: [facility] updated the methodology used for albumin testing on 11/06/17. Albumin measurement was performed using a bromcresol purple dye-binding assay. Performed By: #### C OMP ####[place] [address] Albumin/Globulin mass ratio 1.1 {ratio} Normal 1.1-2.2 [facility] Comment on above: Performed By: #### C OMP ####[place] [id number] Alk Phos 64 IU/L Normal 32-91 [facility] Comment on above: Performed By: #### C OMP ####[place] [id number] ALT enzyme act/vol 8 U/L Low 14-54 [facility] Comment on above: Performed By: #### C OMP ####[place] [id number] Anion gap 3 molar conc 14 mmol/L Normal 7-17 [facility] Comment on above: Performed By: #### C OMP ####[place] [id number] AST enzyme act/vol 19 U/L Normal 15-41 [facility] Comment on above: Performed By: #### C OMP ####[place] [id number] Bili Total 0.4 mg/dL Normal 0.3-1.2 [facility] Comment on above: Performed By: #### C OMP ####[place] [id number] Calcium mass conc 9.0 mg/dL Normal 8.5-10.3 [facility] Comment on above: Performed By: #### C OMP ####[address] [address] Chloride molar conc 104 mmol/L Normal 98-110 [facility] Comment on above: Performed By: #### C OMP ####[address] [address] CO2 molar conc 22 mmol/L Normal 22-32 [facility] Comment on above: Performed By: #### C OMP ####[address] [address] Creatinine mass conc 0.87 mg/dL Normal 0.44-1.03 [facility] Comment on above: Performed By: #### C OMP ####[address] [address] Glucose mass conc 82 mg/dL Normal 74-118 [facility] Comment on above: Performed By: #### C OMP ####[address] [address] Potassium molar conc 3.7 mmol/L Normal 3.4-4.8 [facility] Comment on above: Performed By: #### C OMP ####[address] [address] Protein mass conc 7.5 g/dL Normal 6.5-8.1 [facility] Comment on above: Performed By: #### C OMP ####[address] [address] Sodium molar conc 136 mmol/L Normal 133-142 [facility] Comment on above: Performed By: #### C OMP ####[address] [address] Urea nitrogen mass conc 17 mg/dL Normal 8-26 [facility] Comment on above: Performed By: #### C OMP ####[address] [address] Urea nitrogen/Creatinin e mass ratio 19.5 mg/mg Normal 10.0-20.0 [facility] Comment on above: Performed By: #### C OMP ####[address] [address] Diff Autoon 01-22-2018 Baso Absolute 0.0 x10*3/mcL Normal 0.0-0.2 [facility] Comment on above: Performed By: #### . Automated Diff ####[address] [address] Basophils/100 WBC Auto (Bld) 0.6 % Normal 0.0-1.5 [facility] Comment on above: Performed By: #### . Automated Diff ####[address] [address] Eos Absolute 0.0 x10*3/mcL Normal 0.0-0.4 [facility] Comment on above: Performed By: #### . Automated Diff ####[address] [address] Eosinophils/100 WBC Auto (Bld) 0.5 % Normal 0.0-5.4 [facility] Comment on above: Performed By: #### . Automated Diff ####[address] [address] Lymphocytes Auto #/vol (Bld) 1.9 x10*3/mcL Normal 1.0-4.8 [facility] Comment on above: Performed By: #### . Automated Diff ####[address] [address] Lymphocytes/100 WBC Auto (Bld) 23.6 % Low 27.2-40.8 [facility] Comment on above: Performed By: #### . Automated Diff ####[address] [address] [place] Absolute 0.7 x10*3/mcL Normal 0.1-1.1 [facility] Comment on above: Performed By: #### . Automated Diff ####[address] [address] Monocytes/100 WBC Auto (Bld) 8.3 % Normal 3.7-11.9 [facility] Comment on above: Performed By: #### . Automated Diff ####[place] [id number] Neutro Absolute 5.4 x10*3/mcL Normal 1.8-7.7 [facility] Comment on above: Performed By: #### . Automated Diff ####[place] [id number] Neutro Auto 67.0 % Normal 47.2-70.8 [facility] Comment on above: Performed By: #### . Automated Diff ####[place] [id number] Hgb A1con 01-22-2018 Glucose mass conc 97 mg/dL Normal 74-118 [facility] Comment on above: Result Comment: Math ematical Calc approx. The mean gluc equivalency of A1c Performed By: #### H BA1C ####[place] [id number] Hemoglobin A1c/Hemoglobin.tot al mass fraction (Bld) 5.0 % A1c Normal 4.0-6.0 [facility] Comment on above: Performed By: #### H BA1C ####[place] [id number] Lipid Panelon 01-22-2018 Cholesterol in LDL mass conc 84 mg/dL Normal 0-99 [facility] Comment on above: Result Comment: The equation being used in this calculation is LDL = (Chol - HDL) - (Trig / 5)The optimal value of LDL for individual patients may vary.The patient's history of Artherosclerosis and other cardiacrisk factors should be considered. Performed By: #### L EMILIE ####[place] [id number] Cardiac Risk 2.7 Normal [facility] Comment on above: Result Comment: Men Women1/2 Average 3.43 3.27Average 4.97 4.442x Average 9.55 7.053x Average 23.99 11.04 Performed By: #### L EMILIE ####[place] [address] [place] [address] Cholesterol in HDL mass conc 59.0 mg/dL Normal 40.0-60.0 [facility] Comment on above: Performed By: #### L PHAN ####[place] [address] [place] [address] Cholesterol in VLDL mass conc 19 mg/dL Normal 8-39 [facility] Comment on above: Performed By: #### L PHAN ####[address] [address] Cholesterol mass conc 162 mg/dL Normal 25-199 [facility] Comment on above: Result Comment: 0 - 17 years of age:Desirable 0-170Borderline High 170-199High >=16275 years and older:Acceptable <200Borderline High 200-239High >=240 Performed By: #### L PHAN ####[address] [address] Triglyceride mass conc 96 mg/dL Normal [facility] Comment on above: Result Comment: 0 - 17 years of age:Trig 90 - 129 Borderline HighTrig => 130 High18 years and older:Trig 150 - 199 Borderline HighTrig 200 - 499 HighTrig =>500 Very High Performed By: #### L PHAN ####[address] [address] TSHon 01-22-2018 Thyrotropin Qn 1.54 mcIU/mL Normal 0.45-5.33 [facility] Comment on above: Result Comment: Refe rence Ranges for individuals from to 18 years of age were obtained from The Ashely Alejandro Handbook (20 ed) published by [facility].Reference Ranges for Females: Females, 1st Trimester 0.05 ? 3.7 uIU/mL Females, 2nd Trimester 0.31 ? 4.35 uIU/mL Females, 3rd Trimester 0.41 ? 5.18 uIU/mL Performed By: #### T SH ####[address] [address] Vital Signs Date Time Vital Sign Value Performing Clinician Jasmin garza 11-19-2024 14:50-0400 Body height 170 cm Jocelyne Abraham INDIVIDUALIZED EDUCATION PLAN AIDE.EDGING MACHINE CATCHER Work Phone: [facility] 11-19-2024 14:50-0400 Body mass index (BMI) [Ratio] 33.27 kg/m2 Jocelyne Abraham INDIVIDUALIZED EDUCATION PLAN AIDE.EDGING MACHINE CATCHER Work Phone: [facility] 11-19-2024 14:50-0400 Body weight 96.16 kg Jocelyne Abraham INDIVIDUALIZED EDUCATION PLAN AIDE.EDGING MACHINE CATCHER Work Phone: [facility] 11-19-2024 14:50-0400 Diastolic blood pressure 86 mm[Hg] Jocelyne Abraham INDIVIDUALIZED EDUCATION PLAN AIDE.EDGING MACHINE CATCHER Work Phone: [facility] 11-19-2024 14:50-0400 Systolic blood pressure 124 mm[Hg] Jocelyne Abraham INDIVIDUALIZED EDUCATION PLAN AIDE.EDGING MACHINE CATCHER Work Phone: [facility] 11-15-2023 14:53-0400 Body height 171 cm Jocelyne Abraham INDIVIDUALIZED EDUCATION PLAN AIDE.EDGING MACHINE CATCHER Work Phone: [facility] 11-15-2023 14:53-0400 Body mass index (BMI) [Ratio] 32.42 kg/m2 Jocelyne Abraham INDIVIDUALIZED EDUCATION PLAN AIDE.EDGING MACHINE CATCHER Work Phone: [facility] 11-15-2023 14:53-0400 Body weight 94.8 kg Jocelyne Abraham INDIVIDUALIZED EDUCATION PLAN AIDE.EDGING MACHINE CATCHER Work Phone: [facility] 11-15-2023 14:53-0400 Diastolic blood pressure 74 mm[Hg] Jocelyne Abraham INDIVIDUALIZED EDUCATION PLAN AIDE.EDGING MACHINE CATCHER Work Phone: [facility] 11-15-2023 14:53-0400 Systolic blood pressure 122 mm[Hg] Jocelyne Abraham INDIVIDUALIZED EDUCATION PLAN AIDE.EDGING MACHINE CATCHER Work Phone: [facility] 10-10-2022 07:05-0400 Body height 172.7 cm Jocelyne Abraham INDIVIDUALIZED EDUCATION PLAN AIDE.EDGING MACHINE CATCHER Work Phone: [facility] 10-10-2022 07:05-0400 Body weight 95.25 kg Jocelyne Abraham INDIVIDUALIZED EDUCATION PLAN AIDE.EDGING MACHINE CATCHER Work Phone: [facility] 10-10-2022 07:05-0400 Diastolic blood pressure 82 mm[Hg] Jocelyne Abraham APRN.EDGING MACHINE CATCHER Work Phone: [facility] 10-10-2022 07:05-0400 Systolic blood pressure 122 mm[Hg] Jocelyne Abraham APRN.EDGING MACHINE CATCHER Work Phone: [facility] 09-25-2021 15:06-0400 Body height 172.7 cm Jocelyne Abraham APRN.EDGING MACHINE CATCHER Work Phone: [facility] 09-25-2021 15:06-0400 Body weight 94.98 kg Jocelyne Abraham APRN.EDGING MACHINE CATCHER Work Phone: [facility] 09-25-2021 15:06-0400 Diastolic blood pressure 64 mm[Hg] Jocelyne Abraham APRN.EDGING MACHINE CATCHER Work Phone: [facility] 09-25-2021 15:06-0400 Systolic blood pressure 100 mm[Hg] Jocelyne Abraham APRN.EDGING MACHINE CATCHER Work Phone: [facility] Encounters Encounter Date Encounter Type Care Provider Facility Start: 02-04-2025 ambulatory Conner Carrero [facility] y:[facility] Start: 02-03-2025 Encounter for other preprocedural examination Conner Carrero [facility] Start: 01-27-2025 End: 01-27-2025 ambulatory CONNER CARRERO Facility:[facility] Start: 12-17-2024 End: 12-17-2024 ambulatory NANY BONILLA Facility:[facility] Start: 12-08-2024 End: 12-08-2024 Patient encounter procedure [facility] Start: 12-08-2024 End: 12-08-2024 ambulatory Sales And Marketing Associate [facility] [employer] Work Phone: OB/Gynecology Start: 11-19-2024 End: 11-19-2024 ambulatory JOCELYNE ABRAHAM Facility:[facility] Start: 11-19-2024 End: 11-19-2024 Patient encounter procedure Jocelyne Abraham APRN.EDGING MACHINE CATCHER Work Phone: OB/Gynecology Comment on above: Encounter for gyneco logical examination with abnormal finding (Primary Dx); Abnormal uterine bleeding (AUB); Secondary dysmenorrhea; Pelvic pain; Surveillance for control, oral contraceptives Start: 11-19-2024 End: 11-19-2024 Patient encounter status Jocelyne Abraham APRN.CNP Work Phone: [facility] Start: 11-19-2024 End: 11-19-2024 ambulatory JOCELYNE ABRAHAM Facility:[facility] Start: 11-19-2024 Encounter for gynecological examination (general) (routine) with abnormal findings JOCELYNE ABRAHAM [facility] Start: 11-15-2023 End: 11-15-2023 Patient encounter procedure Jocelyne Abraham APRN.CNP Work Phone: OB/Gynecology Comment on above: Encounter for gyneco logical examination (general) (routine) without abnormal findings (Primary Dx); Surveillance for control, oral contraceptives Start: 11-15-2023 End: 11-15-2023 Patient encounter status Jocelyne Abraham APRN.CNP Work Phone: [facility] Start: 10-10-2022 End: 10-10-2022 Patient encounter procedure Jocelyne Abraham APRN.CNP Work Phone: OB/Gynecology Comment on above: Encounter for gyneco logical examination (general) (routine) without abnormal findings (Primary Dx); Surveillance for control, oral contraceptives; Class 1 obesity without serious comorbidity with body mass index (BMI) of 31.0 to 31.9 in adult, unspecified obesity type Start: 10-10-2022 End: 10-10-2022 Patient encounter status Jocelyne Abraham APRN.CNP Work Phone: [facility] Work Phone: Start: 09-25-2021 End: 09-25-2021 Patient encounter procedure Jocelyne Abraham APRN.CNP Work Phone: OB/Gynecology Comment on above: Encounter for gyneco logical examination with abnormal finding (Primary Dx); Screen for STD (sexually transmitted disease); Genital warts Start: 09-25-2021 End: 09-25-2021 Patient encounter status Jocelyne Abraham APRN.CNP Work Phone: OB/Gynecology Start: 01-22-2018 End: 01-23-2018 Patient encounter [facility] Facility:[facility] Procedures Date Procedure Procedure Detail Performing Clinician Start: 12-17-2024 Follow-up visit Follow Up NANY CHAD Plan of Treatment Date Care Activity Detail Author Start: 11-19-2029 Screening for malign ant neoplasm of cervix Cervical Cancer Screening [facility] Start: 11-19-2025 End: 11-19-2025 Patient encounter procedure 11/19/2025 3:30 PM EDT Office Visit OB/Gynecology [address] [place] [address] Jocelyne Abraham APRN.EDGING MACHINE CATCHER [address] [place] [address] Annual OB/Gynecology Comment on above: Annual Start: 12-24-2024 End: 12-24-2024 Patient encounter procedure 12/24/2024 1:30 PM EDT Office Visit OB/Gynecology [address] [place] [address] Jocelyne Abraham, INDIVIDUALIZED EDUCATION PLAN AIDE.EDGING MACHINE CATCHER [address] [place] [address] EMB/ OK per AG OB/Gynecology Comment on above: EMB/ OK per AG Start: 12-17-2024 End: 12-17-2024 ambulatory 12/17/2024 3:00 PM EDT Procedure OB/Gynecology [address] [place] [address] [facility], Sales And Marketing Associate [facility] [address] [place] [address] Abnormal uterine bleeding (AUB) [N93.9]; Secondary dysmenorrhea [N94.5] OB/Gynecology Comment on above: Abnormal uterine ble eding (AUB) [N93.9]; Secondary dysmenorrhea [N94.5] Start: 12-17-2024 End: 12-17-2024 Patient encounter procedure 12/17/2024 2:50 PM EDT Office Visit OB/Gynecology [address] [address] Nany Bonilla MD [address] [place] [address] EMB/ OK per AG OB/Gynecology Comment on above: EMB/ OK per AG Start: 11-30-2024 Influenza vaccination Influenza Vacc ine (#1) [facility] Start: 11-19-2024 End: 11-19-2024 Patient encounter procedure 11/19/2024 3:00 PM EDT Office Visit OB/Gynecology [address] [place] [address] Jocelyne Abraham APRN.EDGING MACHINE CATCHER [address] [place] [address] Annual OB/Gynecology Comment on above: Annual Start: 11-19-2024 End: 02-18-2025 Thyrotropin [Units/volume] in Serum or Plasma [facility] Comment on above: Expected: 11/19/2024 , Expires: 02/18/2025 Start: 11-19-2024 End: 11-19-2025 US Pelvis PELVIC US [facility] Anc Imaging Routine Abnormal uterine bleeding (AUB) Secondary dysmenorrhea Expected: 11/19/2024, Expires: 11/19/2025 [facility] Work Phone: Comment on above: Expected: 11/19/2024 , Expires: 11/19/2025 Start: 12-01-2023 Influenza vaccination Influenza Vacc ine (#1) [facility] Start: 11-30-2022 Covid-19 Vaccine ( season) Covid-19 Vaccine ( season) [facility] Start: 11-30-2022 Influenza vaccination INFLUENZA (#1) [facility] Start: 08-06-2022 Screening for malign ant neoplasm of cervix Cervical Cancer Screening [facility] Start: 04-01-2022 DEPRESSION ASSESSMENT DEPRESSION ASS ESSMENT [facility] Start: 11-30-2021 Influenza vaccination INFLUENZ A (Season Ended) [facility] Start: 09-09-2017 HPV TESTING HPV TESTING [facility] Start: 09-09-2014 HPV Vaccine (1 - 3-d ose SCDM series) HPV Vaccine (1 - 3-dose SCDM series) [facility] Start: 09-09-2008 PAP TESTING PAP TESTING [facility] Start: 09-09-2006 Hepatitis B Vaccine (1 of 3 - 19+ 3-dose series) Hepatitis B Vaccine (1 of 3 - 19+ 3-dose series) [facility] Start: 09-09-2006 Urine microalbumin profile [facility] Start: 09-09-2005 Anxiety Screening Anxiety Screening [facility] Start: 09-09-2005 Depression Screening Depression Scre ening [facility] Start: 09-09-2005 HEPATITIS C SCREENING HEPATITIS C [facility] Start: 09-09-2005 Hepatitis C screening Hepatitis C [facility] Start: 09-09-2005 HIV SCREENING HIV SCREENING [facility] Start: 09-09-2005 HIV screening HIV Screening [facility] Start: 1999 Adult depression screening assessment DEPRESSION SCREENING [facility] Start: 09-09-1992 COVID-19 VACCINE (#1) COVID-19 VACCI NE (#1) [facility] Start: 03-11-1988 COVID-19 VACCINE (#1) COVID-19 VACCI NE (#1) [facility] Start: 1987 HEPATITIS B (1 of 3 - 3-dose series) HEPATITIS B (1 of 3 - 3-dose series) [facility] Chlamydia trachomatis+Neisseria gonorrhoeae DNA [Presence] in Unspecified specimen by EDGAR with probe detection GC/CHLAMYDIA DNA DET Lab Routine Screen for STD (sexually transmitted disease) 09/25/2021 3:28 PM EDT [facility] Work Phone: Endometrial bx w/wo endocervix bx w/o dilat spx ENDOMETRIAL BIOPSY Procedures Routine Abnormal uterine bleeding (AUB) Ordered: 11/19/2024 [facility] Comment on above: Ordered: 11/19/2024 PAP TEST PAP TEST Lab [facility] Abnormal uterine bleeding (AUB) 11/19/2024 3:58 PM EDT [facility] Payers Date Payer Category Payer Self-pay 2021 Private Health Insurance [employer] [id number] 2021-Present [phone] [address] [place] [id number] Open Access [id number] 2021 Private Health Insurance [id number] 2021 Private Health Insurance [id number] Unknown [id number] Social History Date Type Detail Facility Start: 08-22-2021 End: 10-10-2022 Tobacco smoking status NHIS Ex-smoker [facility] Start: 08-22-2021 End: 10-10-2022 Tobacco use and exposure Smokeless tobacco non-user [facility] Start: 09-25-2021 End: 11-19-2024 Alcohol intake Current drinker of alcohol (finding) [facility] Start: 08-22-2021 History SDOH Alcohol Comment occasional [facility] Start: 1985 Sex Assigned At Female C [facility] History of tobacco use Current smoker [facility] Work Phone: Start: 10-10-2022 End: 11-19-2024 History of Social function [facility] Start: 10-10-2022 End: 11-19-2024 Tobacco use panel [facility] Start: 08-21-2021 National Score (1-10 0), lower number is lower risk 80 [facility] Work Phone: Start: 09-25-2021 Gender identity Identifies as female gender (finding) [facility] Start: 09-25-2021 Sexual orientation Choose not to dis close [facility] Clinical Notes 09-25-2021 to 01-27-2025 Dillon Kirkpatrick MD - 12/08/2024 11:31 PM EDTPatient InstructionsJocelyne Abraham APRN.EDGING MACHINE CATCHER - 11/19/2024 2:44 PM EDTGJocelyne renteria APRN.EDGING MACHINE CATCHER - 11/15/2023 2:45 PM EDTPatient Instructions Note Date & Type Note Facility 01-27-2025 Note [facility] Medical Records Department [address] [place] [address] History Physical Exam 01/27/25 1422 MR#: [id number] Acct: [id number] Name: JEN WISE Rep #: [id number] : 1985 39 From: Conner Carrero MD PCP: Status:PRE SDC Location: SDC History and Physical Date of Admission: 02/04/25 HPI: The patient is a 39 year old female presenting for pre-operative visit. She is scheduled for hysteroscopy D C with IUD Insertion, for aub and submucosal fibroid on 02/04/25. Procedure discussed along with risks, benefits and complications. Other alternatives discussed for management. Consent form signed? Yes. ? PAST MEDICAL HISTORY History reviewed. No pertinent past medical history. ? PAST SURGICAL HISTORY PAST SURGICAL HISTORYProcedureLateralityDate??? NONE? CURRENT MEDICATIONS Current Outpatient MedicationsMedicationSigDispenseR efill???ergocalciferol 50,000 unit capsule (VITAMIN D2, DRISDOL)?norgestimate- ethinyl estradiol (SPRINTEC) 0.25-0.035 mg tabletTake 1 tablet by mouth once daily.84 tablet4???ascorbic acid (VITAMIN C ORAL)Take by mouth once daily.?MAGNESIUM ORALTake by mouth once daily.?elderberry fruit (ELDERBERRY ORAL)Take by mouth once daily.?miSOPROStol (CYTOTEC) 200 mcg tabletInsert 2 tablets vaginally night prior to EMB and 2 tablets morning of procedure. Each dose should be in vagina for 6-8 hours.4 tablet0???No current facility-administered medications for this visit. ? ALLERGIES: Patient has no known allergies. ??? PERSONAL HISTORY: [SOCIAL HISTORY] [SOCIAL HISTORY] Social History Tobacco Use ??? Smoking status: Former ??? Smokeless tobacco: Never Vaping Use ??? Vaping status: Never Used Substance Use Topics ??? Alcohol use: Yes ? Comment: occasional ??? Drug use: Not Currently ??? FAMILY HISTORY: FAMILY HISTORY FAMILY HISTORY ProblemRelationAge of Onset???HypertensionMother?N o Known ProblemsFather?No Known ProblemsSister?HypertensionM aternal Grandmother?Crohn's DiseaseMaternal Grandfather?No Known ProblemsPaternal Grandmother?No Known ProblemsPaternal Grandfather? REVIEW OF SYMPTOMS: GENERAL: denies fevers or chills ENDOCRINOLOGY: has not been on steroids Cardiology : denies palpitations or chest pain Respiratory: denies SOB or cough Hematology: denies history of prolonged bleeding or easy bruising or VTE Allergy: Denies history of personal or family history of allergy to anesthesia ??? PHYSICAL EXAMINATION: ??? VITALS: Blood pressure 116/64, pulse 81, height 170.2 cm (5' 7"), weight 97.5 kg (215 lb), last menstrual period 01/19/2025, SpO2 98%. ??? GENERAL: The patient is well nourished, well hydrated in no acute distress. , The patient is oriented to time, place, and person. NECK: Supple. No lynphadenopathy, normal thyroid, no thyromegaly. LUNGS: Clear to auscultation bilaterally. no wheezes, rhonchi or rales HEART: Regular rate and rhythm, Normal heart sounds, and No murmurs or gallops ??? Pelvic US: Impression The uterus is anteverted and measures 96 mm x 36 mm x 49 mm. The endometrial thickness is 9 mm. There is a submucous, visualized without fluid enhancement, fibroid that measures 12 mm x 9 mm x 11 mm. The right ovary measures 36 mm x 18 mm x 16 mm. The left ovary measures 25 mm x 22 mm x 19 mm and contains a 21 mm x 20 mm x 19 mm ???bilocular cyst (single avascular septation) with smooth borders. ? IMPRESSION: submucosal uterine fibroid, abnormal uterine bleeding and IUD insertion ??? PLAN: The risks/benefits/alternatives and personal involved for the planned hysteroscopy D C with fibroid resection and IUD insertion were reviewed with the patient. Her questions were answered to her satisfaction and she desires to proceed. Consent was signed. I reviewed with her postop instructions and expectations. ? I have reviewed and updated past medical and surgical history, medications and allergies Assessment Plan Assessment/Plan (1) Submucous uterine fibroid: (2) Menorrhagia with regular cycle: (3) Encounter for IUD insertion: 01/27/25 1423 Cosigner Signature (if applicable): CC: Dr. Conner Carrero MD Signed [facility] 01-27-2025 Note HNO ID: [id number] Author: CONNER CARRERO MD Service: ? Author Type: Physician Type: Progress Notes Filed: 01/27/2025 14:21 Note Text: Obstetrics and Gynecology [place] [employer] Visit Subjective Recording using Farm[employer] software for draft documentation of the visit was discussed with the patient/authorized safety representative; all questions welcomed and answered. Patient/authorized safety representative agreed to proceed CHIEF COMPLAINT: The patient is a 39-year-old female with uterine fibroids and menorrhagia, presenting for preoperative evaluation and scheduled hysteroscopic myomectomy with levonorgestrel-releasing IUD placement. HPI: The patient is a 39-year-old female with a history of heavy menstrual bleeding and fibroids presenting for a pre-operative consultation. Menstrual History - Reports a change in menstrual flow since September, with periods previously lasting 4-5 days and being "regular to light." - Over the past few months, periods have become "heavy to regular." - Currently experiencing prolonged bleeding, stating, "I started last Saturday, and I'm still kind of bleeding now." - Reports increased menstrual cramps, stating, "I didn't used to, but ever since like this started to get worse, it's been like way worse than I've ever had." Sexual History - Sexually active with a male partner. Past Medical History - No known major heart, lung, kidney problems, or bleeding disorders. - No known drug allergies. - No known allergic reactions to anesthesia. - Pap smears have always been normal. Social History - Works at [employer]. - Non-smoker; denies use of chewing tobacco or vaping. - Reports very occasional alcohol use. HISTORY: OB History Gravida1 Para1 Term1 Preterm0 AB0 Living1 SAB0 IAB0 Ectopic0 Multiple0 Live Births1 Ventilator Specialist History LMP: 01/19/2025 (Exact Date), Having periods Age at Menarche: 13 Age at First : Age at Menopause: Ventilator Specialist History Comments: Sexual Activity: Yes; Male Contraception: Pill Menstrual Tracking History Flowsheet Row Office Visit from 11/19/2024 in OB/Gynecology Period Cycle (Days) 5 Period Duration (Days) 5 Menstrual Flow Heavy History reviewed. No pertinent past medical history. PAST SURGICAL HISTORY Procedure Laterality Date NONE FAMILY HISTORY Problem Relation Age of Onset Hypertension Mother No Known Problems Father No Known Problems Sister Hypertension Maternal Grandmother Crohn's Disease Maternal Grandfather No Known Problems Paternal Grandmother No Known Problems Paternal Grandfather SOCIAL HISTORY[1] Current Outpatient Medications Medication Sig ergocalciferol 50,000 unit capsule (VITAMIN D2, DRISDOL) norgestimate-ethinyl estradiol (SPRINTEC) 0.25-0.035 mg tablet Take 1 tablet by mouth once daily. ascorbic acid (VITAMIN C ORAL) Take by mouth once daily. MAGNESIUM ORAL Take by mouth once daily. elderberry fruit (ELDERBERRY ORAL) Take by mouth once daily. miSOPROStol (CYTOTEC) 200 mcg tablet Insert 2 tablets vaginally night prior to EMB and 2 tablets morning of procedure. Each dose should be in vagina for 6-8 hours. No current facility-administered medications for this visit. ALLERGIES No Known Allergies REVIEW OF SYSTEMS: Genitourinary: (+) dysmenorrhea, (+) menorrhagia Objective SENSITIVE EXAM: Sensitive exam not performed. PHYSICAL EXAM: BP 116/64 Pulse 81 Ht 5' 7" (1.70m) Wt 215 lb (97.5kg) SpO2 98% LMP 01/19/2025 BMI 33.67 kg/(m2). GENERAL: Pleasant; in no apparent distress Assessment AND Plan ASSESSMENT AND PLAN: 1. Submucous uterine fibroid (D25.0) 2. Menorrhagia with regular cycle (N92.0) - Uterus is slightly enlarged; fibroids likely contributing to increased bleeding and cramping. - Hysteroscopic myomectomy scheduled for the 6th; procedure expected to last 20-25 minutes. - Discussed risks: bleeding (minimal, transfusion rare), infection (minimal, no antibiotics required), uterine perforation (may require procedure to be halted and rescheduled). - Reviewed anesthesia plan - Provided post-op instructions: expect light cramping and bleeding similar to a period for 1-2 weeks, with possible irregular spotting for up to 3 months; no tampons, menstrual cups, intercourse, swimming, or tub baths for 1 week post-op. - Advised to monitor for signs of infection or worsening pain after 2-3 days and to seek care if these occur. - Pre-op test to be performed on day of surgery. - Pre-op phone call scheduled for the at 3:00 PM. - Provided instructions for nothing to eat after midnight before surgery and clear liquids up to 4 hours before arrival time. - Patient advised to contact billing regarding previous biopsy payment. 3. Encounter for insertion of intrauterine contraceptive device (Z30.430) - Liletta IUD to be inserted during hysteroscopic myomectomy; expected to reduce menorrhagia and provide contraception for up to 8 years. - (more content not included)... [facility] 12-17-2024 Note HNO ID: [id number] Author: NANY BONILLA MD Service: ? Author Type: Physician Type: Progress Notes Filed: 12/17/2024 14:57 Note Text: Obstetrics and Gynecology [place] [employer]INET FINISHER Visit Subjective Recording using FarmBot software for draft documentation of the visit was discussed with the patient/authorized safety representative; all questions welcomed and answered. Patient/authorized safety representative agreed to proceed CHIEF COMPLAINT: The patient is a 39-year-old female presenting for evaluation of heavy menstrual bleeding and intermenstrual spotting secondary to a submucosal uterine fibroid. HPI: The patient is a 39-year-old female presenting for evaluation of heavy menstrual bleeding and intermenstrual bleeding. Menstrual History - Reports heavy menstrual bleeding and intermenstrual bleeding since June or July. - During her annual exam with Jocelyne Abraham, she reported heavy bleeding and bleeding between menstrual cycles. Past Diagnostic Results - Pelvic ultrasound: Revealed a submucous fibroid measuring 12mm x 9mm x 11mm. HISTORY: OB History Gravida1 Para0 Term0 Preterm0 AB0 Living1 SAB0 IAB0 Ectopic0 Multiple0 Live Births1 Ventilator Specialist History LMP: 11/06/2024, Having periods Age at Menarche: 13 Age at First : Age at Menopause: Ventilator Specialist History Comments: Sexual Activity: Yes; Male Contraception: Pill Menstrual Tracking History Flowsheet Row Office Visit from 11/19/2024 in OB/Gynecology Period Cycle (Days) 5 Period Duration (Days) 5 Menstrual Flow Heavy No past medical history on file. PAST SURGICAL HISTORY Procedure Laterality Date NONE FAMILY HISTORY Problem Relation Age of Onset Hypertension Mother No Known Problems Father No Known Problems Sister Hypertension Maternal Grandmother Crohn's Disease Maternal Grandfather No Known Problems Paternal Grandmother No Known Problems Paternal Grandfather SOCIAL HISTORY[1] Current Outpatient Medications Medication Sig norgestimate-ethinyl estradiol (SPRINTEC) 0.25-0.035 mg tablet Take 1 tablet by mouth once daily. ascorbic acid (VITAMIN C ORAL) Take by mouth once daily. MAGNESIUM ORAL Take by mouth once daily. elderberry fruit (ELDERBERRY ORAL) Take by mouth once daily. miSOPROStol (CYTOTEC) 200 mcg tablet Insert 2 tablets vaginally night prior to EMB and 2 tablets morning of procedure. Each dose should be in vagina for 6-8 hours. No current facility-administered medications for this visit. ALLERGIES No Known Allergies REVIEW OF SYSTEMS: Genitourinary: (+) heavy menstrual bleeding, (+) intermenstrual bleeding Objective SENSITIVE EXAM: Sensitive exam not performed. PHYSICAL EXAM: BP 120/80 Wt 213 lb 6.4 oz (96.8kg) LMP 11/06/2024 GENERAL: Pleasant; in no acute distress Assessment AND Plan ASSESSMENT AND PLAN: 1. Submucous leiomyoma of uterus (D25.0) 2. Abnormal uterine and vaginal bleeding, unspecified (N93.9) - Submucous fibroid ([id number] mm) identified on ultrasound; likely etiology of abnormal uterine bleeding since June or July. - Recommended hysteroscopic myomectomy with endometrial sampling; discussed rationale for surgical removal over blind biopsy. - Discussed option to place Mirena or Liletta IUD during procedure to address potential hormonal causes of bleeding. - Patient expressed understanding and agreement with plan. - Surgical scheduling to be coordinated with Dr. Carrero at [facility]; preoperative visit to occur within 30 days of surgery. - Advised patient on expected recovery time and [id number] guidance. Medical Decision Making: Problems: Moderate: New problem with uncertain prognosis Data: Unique source(s) for external note(s) reviewed: 1 Unique test result(s) reviewed: 1 Risk: Moderate: Moderate risk from testing/treatment Medical Decision Making Level: 4 - Moderate Nany Bonilla MD [1] Social History Tobacco Use Smoking status: Former Smokeless tobacco: Never Vaping Use Vaping status: Never Used Substance Use Topics Alcohol use: Yes Comment: occasional Drug use: Not Currently [facility] 12-08-2024 Note HNO ID: [id number] Author: DILLON KIRKPATRICK MD Service: ? Author Type: Physician Type: Progress Notes Filed: 12/08/2024 23:38 Note Text: The patient presents for requested ultrasound. Full report available in the "Imaging" tab in ITN. Dillon Kirkpatrick MD [facility] 12-08-2024 History of Present illness Narrative The patient presents for requested ultrasound. Full report available in the "Imaging" tab in ITN. Dillon Kirkpatrick MD documented in this encounter [facility] 11-19-2024 Instructions Jocelyne Abraham APRN.CNP - 11/19/2024 3:35 PM EDT - Continue your current control pills until about 6-7 days before your scheduled ultrasound so your lining is thin for the scan; a refill has been sent to [facility]. - Insert Cytotec vaginally as follows for your endometrial biopsy: 2 tablets the night before and 2 tablets the morning of the procedure, each dose left in place for 6-8 hours; prescription sent to [facility] pharmacy. - Have a CBC and TSH drawn--either today before you leave or on another day that s convenient. - Schedule a transvaginal pelvic ultrasound (ideally during the week after your period ends); you can book this today. - Arrange your endometrial biopsy at least one week after your ultrasound - Pap test was done today as a diagnostic evaluation for your bleeding; expect results in 1-2 weeks. documented in this encounter [facility] 11-19-2024 Note HNO ID: [id number] Author: JOCELYNE ABRAHAM APRN.CNP Service: ? Author Type: Nurse Practitioner Type: Progress Notes Filed: 11/19/2024 15:56 Note Text: Jewel 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 Eugenie is a 39 year old who presents for an annual gynecologic exam with complaints, heavy bleeding, dysmenorrhea, and breakthrough bleeding. Heavy Menstrual Bleeding: - Patient reports a significant increase in menstrual bleeding over the past 4-5 months. - Previously, her menstrual cup would be less than a quarter full after several hours; now, it is almost full after about seven hours. - No clots reported. - Has noticed fatigue, denies lightheadedness Cramping and Pelvic Pain: - Has a history of severe back cramps but now experiences new, stabbing abdominal pain during menstruation. - Describes sharp, intermittent pain on both sides during menstrual cramping. Breakthrough Bleeding: - Experiences intermittent spotting, particularly during bowel movements. - Denies constipation. Still get period: Yes Menses: cycles every 28 days and 4-5 days of flow. Bleeding amount bothersome: Yes Bleeding between periods: Yes Period symptoms: Acne; Breast tenderness; Cramps; Mood change; Pelvic pain Contraception: combined hormonal contraceptives HPV vaccine: No Last Pap: normal 09/21/2020 HPV: Negative 09/21/2020 History of abnormal pap: No Last mammogram: never Sexually active: Yes History of STDS: None Patient concerns for STD exposure: No. Time with current partner: 4 years Pain with intercourse: - One instance of pain during intercourse about four months ago; otherwise, no pain or bleeding reported. Postcoital bleeding: No Bothersome pelvic pain: Yes Documentation from previous visit of 10/10/2022 was copied and pasted, documentation has been reviewed and edited as necessary for today's visit. OB History Gravida1 Para0 Term0 Preterm0 AB0 Living1 SAB0 IAB0 Ectopic0 Multiple0 Live Births1 Ventilator Specialist History LMP: 11/06/2024, Having periods Age at Menarche: 13 Age at First : Age at Menopause: Ventilator Specialist History Comments: Sexual Activity: Yes; Male Contraception: Pill Menstrual Tracking History Flowsheet Row Office Visit from 11/19/2024 in OB/Gynecology Period Cycle (Days) 5 Period Duration (Days) 5 Menstrual Flow Heavy PAST MEDICAL HISTORY Diagnosis Date Coitus painful for female June PAST SURGICAL HISTORY Procedure Laterality Date NONE FAMILY HISTORY Problem Relation Age of Onset No Known Problems Mother No Known Problems Father No Known Problems Sister Hypertension Maternal Grandmother Crohn's Disease Maternal Grandfather No Known Problems Paternal Grandmother No Known Problems Paternal Grandfather SOCIAL HISTORY Social History Tobacco Use Smoking status: Former Smokeless tobacco: Never Vaping Use Vaping status: Never Used Substance Use Topics Alcohol use: Yes Comment: occasional Drug use: Not Currently REVIEW OF SYSTEMS Abdomen: No abdominal pain, nausea, vomiting, diarrhea, or constipation. No bloating, early satiety, indigestion, or increased flatulence. Bladder: No dysuria, gross hematuria, urinary frequency, urinary urgency, or incontinence. Breast: No breast lumps, nipple d/c, overlying skin changes, redness or skin retraction. Allergies and current medication updated:Yes SENSITIVE EXAM: The sensitive examination was discussed with the Patient or Patient's Authorized Cooker Chip. As applicable, any other physician, advance practice provider, medical student, or other health professional student that will be observing or involved in the sensitive examination for educational or training purposes was discussed with the Patient or Authorized Cooker Chip. The Patient or Authorized Cooker Chip has agreed to proceed with the sensitive examination. (Sensitive examination includes inspection and/or palpation of the breasts, pelvis, prostate and anorectal regions). EXAM: BP 124/86 Ht 5' 6.929" (1.70m) Wt 212 lb (96.2kg) LMP 11/06/2024 BMI 33.27 kg/(m2). GENERAL: pleasant, female in no apparent distress HEENT: Normocephalic, atraumatic, mucus membranes moist, and no lesions NECK: Supple, full range of motion, no adenopathy, and thyroid normal DERMATOLOGY: Normal, without lesions, non-icteric, and non-hirsute BREAST: soft, non-tender, symmetric, no dominant mass, normal nipple-areolar complex, no lymphadenopathy, and no nipple discharge CHEST: Normal inspiratory effort ABDOMEN: soft, non-tender, and no masses PELVIC: external genitalia normal, normal Bartholin's glands, urethra, Dahlgren's glands, no vulvar lesions, no cervical lesions, physiologic discharge present, normal appearing perineal body and perianal region BIMANUAL: uterus normal size, shape and consistency, no adnexal masses, and non-tender RECTOVAGINAL: deferred. NEURO: alert and oriented x3,exam grossly non-focal EXTR (more content not included)... 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 Eugenie is a 39 year old who presents for an annual gynecologic exam with complaints, heavy bleeding, dysmenorrhea, and breakthrough bleeding. Heavy Menstrual Bleeding: - Patient reports a significant increase in menstrual bleeding over the past 4-5 months. - Previously, her menstrual cup would be less than a quarter full after several hours; now, it is almost full after about seven hours. - No clots reported. - Has noticed fatigue, denies lightheadedness Cramping and Pelvic Pain: - Has a history of severe back cramps but now experiences new, stabbing abdominal pain during menstruation. - Describes sharp, intermittent pain on both sides during menstrual cramping. Breakthrough Bleeding: - Experiences intermittent spotting, particularly during bowel movements. - Denies constipation. Still get period: Yes Menses: cycles every 28 days and 4-5 days of flow. Bleeding amount bothersome: Yes Bleeding between periods: Yes Period symptoms: Acne; Breast tenderness; Cramps; Mood change; Pelvic pain Contraception: combined hormonal contraceptives HPV vaccine: No Last Pap: normal 09/21/2020 HPV: Negative 09/21/2020 History of abnormal pap: No Last mammogram: never Sexually active: Yes History of STDS: None Patient concerns for STD exposure: No. Time with current partner: 4 years Pain with intercourse: - One instance of pain during intercourse about four months ago; otherwise, no pain or bleeding reported. Postcoital bleeding: No Bothersome pelvic pain: Yes Documentation from previous visit of 10/10/2022 was copied and pasted, documentation has been reviewed and edited as necessary for today's visit. OB History Gravida1 Para0 Term0 Preterm0 AB0 Living1 SAB0 IAB0 Ectopic0 Multiple0 Live Births1 Ventilator Specialist History LMP: 11/06/2024, Having periods Age at Menarche: 13 Age at First : Age at Menopause: Ventilator Specialist History Comments: Sexual Activity: Yes; Male Contraception: Pill Menstrual Tracking History Flowsheet Row Office Visit from 11/19/2024 in OB/Gynecology Period Cycle (Days) 5 Period Duration (Days) 5 Menstrual Flow Heavy PAST MEDICAL HISTORY Diagnosis Date Coitus painful for female June PAST SURGICAL HISTORY Procedure Laterality Date NONE FAMILY HISTORY Problem Relation Age of Onset No Known Problems Mother No Known Problems Father No Known Problems Sister Hypertension Maternal Grandmother Crohn's Disease Maternal Grandfather No Known Problems Paternal Grandmother No Known Problems Paternal Grandfather SOCIAL HISTORY Social History Tobacco Use Smoking status: Former Smokeless tobacco: Never Vaping Use Vaping status: Never Used Substance Use Topics Alcohol use: Yes Comment: occasional Drug use: Not Currently REVIEW OF SYSTEMS Abdomen: No abdominal pain, nausea, vomiting, diarrhea, or constipation. No bloating, early satiety, indigestion, or increased flatulence. Bladder: No dysuria, gross hematuria, urinary frequency, urinary urgency, or incontinence. Breast: No breast lumps, nipple d/c, overlying skin changes, redness or skin retraction. Allergies and current medication updated:Yes SENSITIVE EXAM: The sensitive examination was discussed with the Patient or Patient's Authorized Cooker Chip. As applicable, any other physician, advance practice provider, medical student, or other health professional student that will be observing or involved in the sensitive examination for educational or training purposes was discussed with the Patient or Authorized Cooker Chip. The Patient or Authorized Cooker Chip has agreed to proceed with the sensitive examination. (Sensitive examination includes inspection and/or palpation of the breasts, pelvis, prostate and anorectal regions). EXAM: BP 124/86 Ht 5' 6.929" (1.70m) Wt 212 lb (96.2kg) LMP 11/06/2024 BMI 33.27 kg/(m^2). GENERAL: pleasant, female in no apparent distress HEENT: Normocephalic, atraumatic, mucus membranes moist, and no lesions NECK: Supple, full range of motion, no adenopathy, and thyroid normal DERMATOLOGY: Normal, without lesions, non-icteric, and non-hirsute BREAST: soft, non-tender, symmetric, no dominant mass, normal nipple-areolar complex, no lymphadenopathy, and no nipple discharge CHEST: Normal inspiratory effort ABDOMEN: soft, non-tender, and no masses PELVIC: external genitalia normal, normal Bartholin's glands, urethra, Dahlgren's glands, no vulvar lesions, no cervical lesions, physiologic discharge present, normal appearing perineal body and perianal region BIMANUAL: uterus normal size, shape and consistency, no adnexal masses, and non-tender RECTOVAGINAL: deferred. NEURO: alert and oriented x3,exam grossly non-focal EXTREMITIES: normal ASSESSMENT/PLAN: 1) Health maintenance: Pap done with HPV. Mammogram starting age 40. Nutrition, exercise and routine health maintenance exams reviewed. Calcium/Vitamin D supplementation information provided. 2. Abnormal uterine bleeding (AUB) (N93.9) 3. Secondary dysmenorrhea (N94.5) 4. Pelvic pain (R10.2) - Heavy menstrual bleeding, new sharp abdominal cramping, and intermittent breakthrough bleeding for 4-5 months while on OCPs. - Differential includes endometrial polyps, fibroids, adenomyosis, and other causes of AUB. - Order pelvic ultrasound to be performed on days 6-10 of menstrual cycle to evaluate for structural causes of AUB. - Order CBC and TSH to assess for anemia and thyroid dysfunction as contributors to AUB. - Order endometrial biopsy to be performed after ultrasound to rule out endometrial pathology; prescription for vaginal Cytotec to be used the night before and morning of the procedure. - Discussed potential risks of endometrial biopsy, including uterine perforation and infection. - Discussed Mirena IUD as a treatment option if adenomyosis is identified; reviewed risks, benefits, and alternatives including ablation and hysterectomy. - Advised patient to avoid inserting anything into the vagina for one week after the procedure. - Diagnostic Pap test performed today due to abnormal bleeding. - PELVIC US WHI - PAP TEST - THYROID STIMULATING HORMONE - COMPLETE BLOOD COUNT - ENDOMETRIAL BIOPSY - MISOPROSTOL 200 MCG TABLET 3) Contraception: combined hormonal contraceptives. Contraceptive options reviewed and information provided. 4) STD screening: Declined STI check. 5) Follow up one year or sooner as needed and after ultrasound and biopsy results to discuss further management. 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 Eugenie is a 38 year old who presents for an annual gynecologic exam without complaints. Menses: cycles every 28 days and 4-5 days of flow. Contraception: combined hormonal contraceptives HPV vaccine: No Last Pap: normal 09/21/2020 HPV: Negative 09/21/2020 History of abnormal pap: No Last mammogram: never Sexually active: Yes History of STDS: None Patient concerns for STD exposure: No. Time with current partner: 3 year Pain with intercourse: No Postcoital bleeding: No Documentation from previous visit of 10/10/2022 was copied and pasted, documentation has been reviewed and edited as necessary for today's visit. OB History T0 L1 SAB0 IAB0 Ectopic0 Multiple0 Live Births1 Ventilator Specialist History LMP: 10/05/2022, Having periods Age at Menarche: Age at First : Age at Menopause: Ventilator Specialist History Comments: Sexual Activity: Yes; Male Contraception: Pill No past medical history on file.PAST SURGICAL HISTORY No date: NONE FAMILY HISTORY Problem Relation Age of Onset No Known Problems Mother No Known Problems Father No Known Problems Sister Hypertension Maternal Grandmother Crohn's Disease Maternal Grandfather No Known Problems Paternal Grandmother No Known Problems Paternal Grandfather SOCIAL HISTORY Social History Tobacco Use Smoking status: Former Smokeless tobacco: Never Vaping Use Vaping Use: Never used Substance Use Topics Alcohol use: Yes Comment: occasional Drug use: Not Currently REVIEW OF SYSTEMS Abdomen: No abdominal pain, nausea, vomiting, diarrhea, or constipation. No bloating, early satiety, indigestion, or increased flatulence. Bladder: No dysuria, gross hematuria, urinary frequency, urinary urgency, or incontinence. Breast: No breast lumps, nipple d/c, overlying skin changes, redness or skin retraction. Allergies and current medication updated:Yes EXAM: BP 122/74 Ht 5' 7.323" (1.71m) Wt 209 lb (94.8kg) LMP 11/01/2023 BMI 32.42 kg/(m^2). GENERAL: pleasant, female in no apparent distress HEENT: Normocephalic, atraumatic, mucus membranes moist, and no lesions NECK: Supple, full range of motion, no adenopathy, and thyroid normal DERMATOLOGY: Normal, without lesions, non-icteric, and non-hirsute BREAST: soft, non-tender, symmetric, no dominant mass, normal nipple-areolar complex, no lymphadenopathy, and no nipple discharge CHEST: Normal inspiratory effort ABDOMEN: soft, non-tender, and no masses PELVIC: external genitalia normal, normal Bartholin's glands, urethra, Dahlgren's glands, no vulvar lesions, no cervical lesions, physiologic discharge present, normal appearing perineal body and perianal region BIMANUAL: uterus normal size, shape and consistency, no adnexal masses, and non-tender RECTOVAGINAL: deferred. NEURO: alert and oriented x3,exam grossly non-focal EXTREMITIES: normal ASSESSMENT/PLAN: 1) Health maintenance: Pap/HPV up to date. Mammogram starting age 40. Nutrition, exercise and routine health maintenance exams reviewed. 2) Contraception: combined hormonal contraceptives. Contraceptive options reviewed and information provided. 3) STD screening: Declined STD check. 4) Follow up one year or sooner as needed Jocelyne Abraham APRN.EDGING MACHINE CATCHER documented in this encounter [facility] 10-10-2022 Instructions Jocelyne Abraham APRN.EDGING MACHINE CATCHER - 10/10/2022 7:18 AM EDT Gardasil Gardasil is a vaccine to protect against Human Papillomavirus (HPV) types 6, 11, 16, 18, 31,33,45, 52, 58. These viruses cause cancer and precancerous lesions on the cervix (opening between vagina and uterus), in the vagina and on the vulva (skin around the outside of the vagina) as well as genital warts. The vaccine cannot cause these diseases and cannot treat them if already present. Gardasil works best if given before contact with HPV. Most people are exposed to HPV soon after starting sexual activity. The vaccine is recommended between the ages of 9 and 45. Gardasil does not protect against all strains of HPV. Women who receive the vaccine still need to have regular pelvic exams and cervical cancer screening with the pap smear. You should ask your doctor if Gardasil is right for you if you have a weakened immune system, a bleeding disorder, plan to become soon or have a current illness causing fever. Gardasil is not recommended for women. You should be sure your doctor is aware of any allergies you have and all medications and herbal supplements you take. Gardasil is given to those ages 9-14 in 2 doses at 0 and 8 months. In ages 15-45, three injections are given at 0,2,6 months. Common side effects include pain, redness, itching and swelling at the injection site, nausea, fever, dizziness and fainting. Rare but potentially serious reactions have been reported. These include allergic reaction, swollen glands, joint and muscle pain, weakness and Guillain-[place] syndrome. - Eat primarily whole foods. Limit carbs, especially processed carbs. - Do not drink your calories - 30 grams of protein for breakfast decreases your hunger during the day by up to 40 % Premier Protein or generic 30 gm protein 1 gm sugar - Walk for 15 minutes immediately a meal. Protein - no carbs Egg 1 large - 6g Egg white 1 large 3.6g 3 oz is approximately the size of a deck of cards and equals 21 g protein Beef, Chicken, [place], Pork, [place] 1 oz 7g Fish, Tuna Fish 1 oz 7g Seafood (Crabmeat, Shrimp, Lobster) 1 oz 6g Protein shakes (read labels) Premier Protein or generic [employer] Equate, [employer]i Elevate, [employer] High Performance- 30g protein & 1g carb Fairlife 30 gram protein - 30g protein & 3g carb BOOST Glucose Control Max 30g Protein Nutritional Drink - 30g protein & 6 carb Slimfast High Protein - 20g protein & 1g carb Ensure Max Protein Nutrition Shake 30g protein & 2 carb Protein AND carbs Beef/[place] Jerky 1 oz dried 10-15g protein - check carb count, can be high if sugar added Imitation Crab Meat 1 oz - 2g protein & 4g carb Milk, skim 2% or 1% 8 oz - 8g protein & 12g carb Guatem[place] yogurt Full Fat [place] Yogurt 1 cup - 20.4g protein & 9.1g carb 2% [place] Yogurt 1 cup - 22.7g protein & 9.1g carb 0% (fat-free) [place] Yogurt - 1 cup 24g protein & 9.3g carb :ratio, KETO Friendly Dairy Snack 1 single svg - 15g protein & 2g carb :ratio Protein 1 single svg - 25g protein & 8g carb Dannon Light + Fit 1 single csvg - 12g protein & 9g carb Two Good Lowfat [place] Yogurt, [place], Lower Sugar - 12g protein & 2g carb [place] Triple Zero Guatemalan Nonfat Yogurt 1 single svg - 15g protein & 7g carb Cheese each oz Brie 5.9g protein & 0.1g carb Cheddar Cheese 7g protein & 0.4g carb Mozzarella Cheese 6.3g protein & 0.6g carb Vivek Cheese 6.7g protein & 0.7g carb Parmesan Cheese 10g protein & 0.9g carb Cream Cheese 1.7g protein & 1.2g carb Feta 4g protein & 1.2g carb [place]er Cheese 7.6g protein & 1.5g carb Petersen s Low Fat Cottage Cheese 1/2cup 12g protein & 4g carb Legumes Lentils cup 9g protein & 20g carb Hutton beans cup 7g protein & 20g carb Kidney, Black, [place], Cannellini beans cup 8g protein & 20g carb Soybeans 1/2 c 14g protein & 8.5g carb Peanut butter, natural 2 Tbsp 7-8g protein & 4g net carbs, 190 calories Willis milk, unsweetened 8 oz 1g protein & 2g carb Soy milk 8 oz 3.5g protein & 1.6g carb Tofu 1/2 cup 10g protein & 2.3g carb Nuts and Seeds per oz Pumpkin Seeds - 6.9g protein & 5g carb Almonds - 5.9g protein & 6.1g carb Rhea Seeds - 5.8g protein & 5.6g carb Pistachios - 5.8g protein & 7.8g carb Cashews - 5.1g protein & 9.2g carb Walnuts - 4.3g protein & 3.8g carb Hazelnuts - 4.2g protein & 4.7g carb [place] Nuts - 4.0g protein & 3.4g carb Pecans - 2.6g protein & 3.9g carb Peanuts - 7g protein & 4.6g carb documented in this encounter [facility] 10-10-2022 History of Present illness 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 Eugenie is a 37 year old who presents for an annual gynecologic exam without complaints. Menses: cycles every 28 days and 4-5 days of flow. Contraception: combined hormonal contraceptives HPV vaccine: No Last Pap: normal 09/21/2020 HPV: Negative 09/21/2020 History of abnormal pap: No Last mammogram: never Sexually active: Yes History of STDS: None Patient concerns for STD exposure: No. Time with current partner: 2 year Pain with intercourse: No Postcoital bleeding: No Documentation from previous visit of 09/25/2022 was copied and pasted, documentation has been reviewed and edited as necessary for today's visit. OB History T0 L1 SAB0 IAB0 Ectopic0 Multiple0 Live Births1 Ventilator Specialist History LMP: 09/15/2021, Having periods Age at Menarche: Age at First : Age at Menopause: Ventilator Specialist History Comments: Sexual Activity: Yes; Male Contraception: Pill No past medical history on file. PAST SURGICAL HISTORY Procedure Laterality Date NONE FAMILY HISTORY Problem Relation Age of Onset No Known Problems Mother No Known Problems Father No Known Problems Sister Hypertension Maternal Grandmother Crohn's Disease Maternal Grandfather No Known Problems Paternal Grandmother No Known Problems Paternal Grandfather SOCIAL HISTORY Social History Tobacco Use Smoking status: Former Smokeless tobacco: Never Vaping Use Vaping Use: Never used Substance Use Topics Alcohol use: Yes Comment: occasional Drug use: Not Currently REVIEW OF SYSTEMS Abdomen: No abdominal pain, nausea, vomiting, diarrhea, or constipation. No bloating, early satiety, indigestion, or increased flatulence. Bladder: No dysuria, gross hematuria, urinary frequency, urinary urgency, or incontinence. Breast: No breast lumps, nipple d/c, overlying skin changes, redness or skin retraction. Allergies and current medication updated:Yes EXAM: BP 122/82 Ht 5' 8" (1.73m) Wt 210 lb (95.3kg) LMP 10/05/2022 BMI 31.94 kg/(m^2). Working nights - weight stable, intermittent fasting GENERAL: pleasant, female in no apparent distress HEENT: Normocephalic, atraumatic, mucus membranes moist, and no lesions NECK: Supple, full range of motion, no adenopathy, and thyroid normal DERMATOLOGY: Normal, without lesions, non-icteric, and non-hirsute BREAST: soft, non-tender, symmetric, no dominant mass, normal nipple-areolar complex, no lymphadenopathy, and no nipple discharge CHEST: Normal inspiratory effort ABDOMEN: soft, non-tender, and no masses PELVIC: external genitalia normal, normal Bartholin's glands, urethra, Dahlgren's glands, no vulvar lesions, no cervical lesions, physiologic discharge present, normal appearing perineal body and perianal region BIMANUAL: uterus normal size, shape and consistency, no adnexal masses, and non-tender RECTOVAGINAL: deferred. NEURO: alert and oriented x3,exam grossly non-focal EXTREMITIES: normal ASSESSMENT/PLAN: 1) Health maintenance: Pap/HPV up to date. Mammogram starting age 40. Nutrition, exercise and routine health maintenance exams reviewed. Considering HPV vaccine 2. 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 Discussed health risks including increased weight. She follows IF. Discussed: - Eat primarily whole foods. Limit carbs, especially processed carbs. - Do not drink your calories - 30 grams of protein for breakfast decreases your hunger during the day by up to 40 % Premier Protein or generic 30 gm protein 1 gm sugar - Walk for 15 minutes immediately a meal. 3) Contraception: combined hormonal contraceptives. Contraceptive options reviewed and information provided. 4) STD screening: Declined STD check. 5) Follow up one year or sooner as needed Jocelyne Abraham APRN.JAIMEE documented in this encounter [facility] 09-25-2021 History of Present illness Narrative Jen is a 36 year old who presents for an annual gynecologic exam without complaints. Menses: cycles every 28 days and 4-5 days of flow. Contraception: combined hormonal contraceptives HPV vaccine: No Last Pap: normal 08/07/2019 HPV: Negative 08/07/2019 History of abnormal pap: No Last mammogram: never Sexually active: Yes History of STDS: None Patient concerns for STD exposure: No. Time with current partner: 1 year Pain with intercourse: No Postcoital bleeding: No OB History T1 L1 SAB0 IAB0 Ectopic0 Multiple0 Live Births1 Ventilator Specialist History LMP: 09/15/2021, Having periods Age at Menarche: Age at First : Age at Menopause: Ventilator Specialist History Comments: Sexual Activity: Yes; Male Contraception: Pill History reviewed. No pertinent past medical history. PAST SURGICAL HISTORY Procedure Laterality Date NONE FAMILY HISTORY Problem Relation Age of Onset No Known Problems Mother No Known Problems Father No Known Problems Sister Hypertension Maternal Grandmother Crohn's Disease Maternal Grandfather No Known Problems Paternal Grandmother No Known Problems Paternal Grandfather SOCIAL HISTORY Social History Tobacco Use Smoking status: Former Smoker Smokeless tobacco: Never Used Vaping Use Vaping Use: Never used Substance Use Topics Alcohol use: Yes Comment: occasional Drug use: Not Currently REVIEW OF SYSTEMS Abdomen: No abdominal pain, nausea, vomiting, diarrhea, or constipation. No bloating, early satiety, indigestion, or increased flatulence. Bladder: No dysuria, gross hematuria, urinary frequency, urinary urgency, or incontinence. Breast: No breast lumps, nipple d/c, overlying skin changes, redness or skin retraction. Allergies and current medication updated:Yes EXAM: BP 100/64 Ht 5' 8" (1.73m) Wt 209 lb 6.4 oz (95.0kg) LMP 09/15/2021 BMI 31.85 kg/(m^2). GENERAL: pleasant, female in no apparent distress HEENT: Normocephalic, atraumatic, mucus membranes moist and no lesions NECK: Supple, full range of motion, no adenopathy and thyroid normal DERMATOLOGY: Normal, without lesions, non-icteric and non-hirsute BREAST: soft, non-tender, symmetric, no dominant mass, normal nipple-areolar complex, no lymphadenopathy and no nipple discharge CHEST: Normal inspiratory effort ABDOMEN: soft, non-tender and no masses PELVIC: external genitalia normal, normal Bartholin's glands, urethra, Dahlgren's glands, no vulvar lesions, no cervical lesions, physiologic discharge present, normal appearing perineal body and perianal region. Multiple genital warts to perineum and inner buttocks. BIMANUAL: uterus normal size, shape and consistency, no adnexal masses and non-tender RECTOVAGINAL: deferred. NEURO: alert and oriented x3,exam grossly non-focal EXTREMITIES: normal ASSESSMENT/PLAN: 1) Health maintenance: Pap/HPV up to date. Mammogram starting age 40. Nutrition, exercise and routine health maintenance exams reviewed. 2. Genital warts - ICD9: 078.11, ICD10: A63.0 - Discussed treatment options - will decide if she would like treatment. 3) Contraception: combined hormonal contraceptives. Contraceptive options reviewed and information provided. 4) STD screening: Accepted STD check for Gonorrhea and Chlamydia. 5) Follow up one year or sooner as needed Jocelyne Abraham APRN.EDGING MACHINE CATCHER documented in this encounter [facility] Evaluation note Diagnosis Encounter for gynecological examination with abnormal finding- Primary Routine gynecological examination Screen for STD (sexually transmitted disease) Screening examination for venereal disease Genital warts Condyloma acuminatum [facility] Diagnosis Encounter for gynecological examination (general) (routine) without abnormal findings- Primary Surveillance for control, oral contraceptives Surveillance of previously prescribed contraceptive pill Class 1 obesity without serious comorbidity with body mass index (BMI) of 31.0 to 31.9 in adult, unspecified obesity type [facility] Diagnosis Encounter for gynecological examination (general) (routine) without abnormal findings- Primary Surveillance for control, oral contraceptives Surveillance of previously prescribed contraceptive pill [facility] Diagnosis Encounter for gynecological examination with abnormal finding- Primary Routine gynecological examination Abnormal uterine bleeding (AUB) Secondary dysmenorrhea Dysmenorrhea Pelvic pain Surveillance for control, oral contraceptives Surveillance of previously prescribed contraceptive pill [facility] Diagnosis Abnormal uterine bleeding (AUB)- Primary Secondary dysmenorrhea Dysmenorrhea Complex cyst of left ovary Submucous uterine fibroid Submucous leiomyoma of uterus [facility]* Diagnostic Procedure Only (Routine) - Closed Specialty Diagnoses / Procedures Referred By Margaret coffey Referred To Contact [facility] Diagnoses Abnormal uterine bleeding (AUB) Secondary dysmenorrhea Procedures PELVIC US WHI US PELVIC NONOBSTETRIC REAL-TIME IMAGE COMPLETE Jocelyne Abraham, MIC.EDGING MACHINE CATCHER [address] [place] [address] Phone: tel: fax: [facility] [address] [place] [address] Referral ID Status Reason Start Date Expiration Date V isits Requested Visits Authorized [id number] Closed Auto-Generate d Referral 11/19/2024 11/19/2025 1 1 [facility] Summary Purpose Family History No Family History Records FoundNo Family History Records FoundNo Family History Records FoundNo Family History Records Found Advance Directives No Advanced Directives Records FoundNo Advanced Directives Records FoundNo Advanced Directives Records FoundNo Advanced Directives Records Found Additional Source Comments INFORMATION SOURCE (unrecogn ized section and content) DATE CREATED AUTHOR 02/24/2018 [facility] DATE CREATED AUTHOR AUTHOR'S ORGANIZ ATION 09/27/2020 [facility] DATE CREATED AUTHOR AUTHOR'S ORGANIZ ATION 01/28/2025 [facility] DATE CREATED AUTHOR AUTHOR'S ORGANIZ ATION 02/03/2025 [facility] Source Comments (unrecognize d section and content) In the event this informatio n is protected by the Federal Confidentiality of Alcohol and Drug Abuse Patient Records regulations: The Federal rules restrict any use of the information to criminally investigate or prosecute any alcohol or drug abuse patient.[facility] the event this information is protected by the Federal Confidentiality of Alcohol and Drug Abuse Patient Records regulations: The Federal rules restrict any use of the information to criminally investigate or prosecute any alcohol or drug abuse patient.[facility] the event this information is protected by the Federal Confidentiality of Alcohol and Drug Abuse Patient Records regulations: The Federal rules restrict any use of the information to criminally investigate or prosecute any alcohol or drug abuse patient.[facility] the event this information is protected by the Federal Confidentiality of Alcohol and Drug Abuse Patient Records regulations: The Federal rules restrict any use of the information to criminally investigate or prosecute any alcohol or drug abuse patient.[facility] the event this information is protected by the Federal Confidentiality of Alcohol and Drug Abuse Patient Records regulations: The Federal rules restrict any use of the information to criminally investigate or prosecute any alcohol or drug abuse patient.[facility] Reason for Visit (unrecogniz ed section and content) Reason Comments Well Woman Reason Comments Well Woman FOR RECORDS PERTAINING TO PATIENTS WHO ARE OR HAVE BEEN ENROLLED IN A CHEMICAL DEPENDENCY/SUBSTANCEABUSE PROGRAM, SOME INFORMATION MAY BE OMITTED. This clinical summary was aggregated from multiple sources. Caution should be exercised in using it in the provision of clinical care. This summary normalizes information from multiple sources, and as a consequence, information in this document may materially change the coding, format and clinical context of patient data. In addition, data may be omitted in some cases. CLINICAL DECISIONS SHOULD BE BASED ON THE PRIMARY CLINICAL RECORDS. [address] [facility]. provides no warranty or guarantee of the accuracy or completeness of information in this document.
[2025-02-04] MEDS: Lactated Ringers 1,000 ML 15 ML IV (07:45)
[2025-02-04] MEDS: Ketorolac 30 MG/ML Syringe IV (07:48)
[2025-02-04 07:55] LABS: Internal QC Validated? YES +Cl - CLEAR BKGD; Pregnancy, Urine Negative Negative; Record Kit Lot#,Urine Preg 980607
--- NOTE | 2025-02-04 07:55 | PCM.PRE.AN2 ---
ASA Classification* ASA Classification ASA Classification: 2 Assessment & Plan Anesthesia* Anesthesia Assessment Anesthesia Assessment: Discussed sedation and/or anesthesia options, risks, benefits, and alternatives with patient/parents/legal guardian/POA. Questions invited. The patient/parents/legal guardian/POA seems to understand and agrees to proceed with anesthesia plan. Reviewed the physical assessment, medical history, allergy history and patient home medications list prior to surgery/procedure/anesthetic and documented any changes. Performed airway and anesthesia risk assessments. Anesthesia Type Anesthesia Type: MAC History Source History Obtained from:: Patient and Chart Anesthesia Focused Assessment* Temperature: 98.1 F Pulse Rate: 66 Blood Pressure: 129/83 Respiratory Rate: 16 Pulse Ox: 100 Oxygen Delivery Method: Room Air Airway Assessment Mouth opens: >3 cm Mallampati Score: II Teeth Condition: Intact Neck Range of motion (ROM): Full ROM Labs Anesthesia Preop lab: CBC CHEMISTRY COAG Urine Test Pending Today, 07:40 Pre-Assessment Diagnosis/Proposed Procedure Planned Operative Procedure(s): HYSTEROSCOPY DILATION CURETTAGE SYMPHION, IUD INSERTION, MYOMECTOMY Anesthesia History Anesthesia History - reporting specialist: Anesthesia History - reporting specialist Hx Hospitalization No 01/28/25 15:09 Any Problems With Anesthesia No 01/28/25 15:09 Cholinesterase deficiency No 01/28/25 15:09 You/Your Family Experience No 01/28/25 15:09 fever (hyperthermia) with Relationship Recent Exposure to Contagious No 02/04/25 07:41 Disease Does patient have nerve No 01/28/25 15:09 stimulator Patient instructed to have device shut off --Does patient have Pacemaker No 02/04/25 07:41 or ICD? When Was Last Pacemaker Check QUESTION #4 FULL TEXT: You/Your Family Experience fever (hyperthermia) with Anesthesia Last Oral Intake Last Oral intake: Last Oral Intake NPO since 23:00 02/04/25 07:41 Meds taken in AM with sips of water? Meds patient instructed to take am of surgery PONV PONV - reporting specialist: PONV - reporting specialist Female Yes 01/28/25 15:09 HX of Motion Sickness Yes 01/28/25 15:09 HX of N/V After Surgery No 01/28/25 15:09 Non-Smoker Yes 01/28/25 15:09 Duration of Surgery greater Yes 01/28/25 15:09 than 60 minutes Number of Risk Factors 4 01/28/25 15:09 PONV Score Severe Risk 01/28/25 15:09 Height & Weight Height & Weight: Anesthesia: Height & Weight Height 5 ft 8 in 02/04/25 07:41 Weight: 97.8 kg 02/04/25 07:41 Body Mass Index (BMI) 32.8 02/04/25 07:41 Respiratory Assessment Respiratory Assessment - reporting specialist: Respiratory Tract Infection Hx - reporting specialist Hx Respiratory Tract Infection No 01/28/25 15:09 STOP Sleep Apnea STOP Sleep Apnea - reporting specialist: STOP Sleep Apnea - reporting specialist Hx Hypertension No 01/28/25 15:09 Hx Sleep Apnea No 01/28/25 15:09 CPAP BIPAP Do you snore loudly (louder No 01/28/25 15:09 than talking or can be heard Do you often feel tired/ No 01/28/25 15:09 fatigued/ sleepy during daytime? Has anyone observed you stop No 01/28/25 15:09 breathing during sleep? STOP Results Negative 01/28/25 15:09 QUESTION #5 FULL TEXT : Do you snore loudly (louder than talking or can be heard through closed doors)? Tobacco Use History Tobacco Use History - reporting specialist: Tobacco Use History - reporting specialist Tobacco Use Smoking Status Former smoker 01/28/25 15:09 Hx Tobacco Use No 01/28/25 15:09 Years Smoking Packs Smoked per Day Smoking Cessation Date was No - quit smoking greater 01/28/25 15:09 within the last 15 years than 15 years ago Hx Smoking Cessation Date Hx Smoking Cessation Counseling Hematologic Medial History Hematologic Hx - reporting specialist: Hematologic Medical Hx - deliverer outside Hx of Blood Transfusion No 01/28/25 15:09 Hx of Transfusion in last 3 No 01/28/25 15:09 Months Date of Last Transfusion (if within last 3 months) Ever experience any problems No 01/28/25 15:09 with transfusion(s)? Specify any problems Hx of Preganancy in last 3 No 01/28/25 15:09 Months Nurse Filling Out Transfusion [id number] 01/28/25 15:09 & Questions: Date: 01/28/25 01/28/25 15:09 Time: 15:12 01/28/25 15:09 Patient unable to answer at this time (ie. confused, unrespo /Reproduction History /Reproductive History - reporting specialist: /Reproductive Hx- reporting specialist Hx Now No 01/28/25 15:09 Gestational Age (in weeks): EDC: Hx Hx Para Hx Section SAB No 01/28/25 15:09 Does the father of the baby or his family experience fever w Father of the baby Malignant Hypertension history comment Active Medications Active Medications: Current Medications Generic Name Dose Route Start Last Admin Trade Name Abisai PRN Reason Stop Dose Admin Acetaminophen 1,000 mg 02/04/25 08:45 02/04/25 07:48 Acetaminophen 500 Mg Tablet PO 02/04/25 08:46 1,000 mg PREOP ONE Administration Lactated Ringer's 1,000 mls @ 15 mls/hr 02/04/25 07:30 02/04/25 07:45 IV 15 mls/hr .Q48H SARAH Administration Ketorolac Tromethamine 30 mg 02/04/25 08:45 02/04/25 07:48 Ketorolac 30 Mg/Ml Syringe IV 02/04/25 08:46 30 mg PREOP ONE Administration Levonorgestrel 1 each 02/04/25 08:45 Levonorgestrel Iud (Liletta) INTRA-UTER 02/04/25 08:46 X1 ONE PFSH Medical History Wears glasses Alcohol use Former smoker Home Medications Medication Instructions Recorded Last Taken Type norgestimate 0.25 mg-ethinyl 1 tab PO DAILY 01/28/25 Unknown History estradiol 0.035 mg tablet Allergy/AdvReac Type Severity Reaction Status Date / Time No Known Allergies Allergy Verified 02/04/25 07:41 Surgical History (Updated 01/28/25 @ 15:14 by Delvin Portillo) No history of previous surgery Social History Smoking Status: Former smoker Review of Systems (Anesthesia) ROS Narrative System reviewed and no additional complaints, except as documented. Physical Exam Const alert, oriented x3 and average body habitus Resp normal respiratory effort, normal air movement and clear to auscultation bilaterally Cardio regular rate, regular rhythm, no murmurs and diaphoretic
--- NOTE | 2025-02-04 08:41 | PCM.DC ---
Discharge Instructions DC O2, CPAP, BIPAP needs Home O2 Discharge instructions: No Dressing / Incision Discharge Activity: May Take a Tub Bath (in 1 week) May shower in (days): 1 May resume sexual activity in: 2 weeks Lifting Restrictions: none Dressing / Incision Call your doctor if your incision/area has: Sudden Increased Bleeding and Foul Smelling Discharge Call your doctor if you observe: Fever of 101 or Higher and Using more than 1 pad per hour (for 2 hrs in a row) Follow Up Care Please Follow Up With: Josie Harris MD When: You Test Results: Test results from this visit will be discussed in further detail at your follow-up appointment, if applicable. Discharge Plan Admission Primary Reason for Your Visit: Hysteroscopy D&C with Liletta IUD insertion Attending Provider: Josie Harris Primary Care Provider: Care Physician,No Primary Instructions Print Language: Kinyarwanda Discharge Orders/Prescriptions Prescriptions: Discontinued norgestimate-ethinyl estradiol 0.25-0.035 mg tablet 1 tab PO DAILY Disposition Disposition (needs filled in before D/C Order can be placed): Home, Self Care
[2025-02-04] MEDS: Lactated Ringers 500 ML IV (08:43)
[2025-02-04] MEDS: Midazolam 2 MG/2 ML Syringe IV (08:44)
--- NOTE | 2025-02-04 08:45 | EMB_PTH ---
PATIENT: MAURO WISE [place] [facility] [place][id number] AGE/SX: 39/F ROOM: RE02/04/[address]: Dr. Josie Harris MD : 1985 BED: DIS: 02/04/2025 SPEC #: [id number] RECD: 02/04/25 09:45 STATUS: JODY REErika #: [id number] ETIENNE: 02/04/25 08:[address]: Josie Harris DEPT: SURGICAL PATHOLOGY RECD BY: Memo iL ENTERED: 02/04/25 11:42 SP TYPE: ENDOM BX/C GI DR: No Primary Care Phys Tissues: A - Endometrium, NOS Procedures: Surgery Specimen Level IV HEADER OPERATION: Hysteroscopy, myomectomy, D&C PRE-OP DIAGNOSIS: Submucous uterine fibroid, menorrhagia with regular cycle, encounter for IUD insertion TISSUE SUBMITTED: A- Endometrial curettings and fibroid MICROSCOPIC DIAGNOSIS A. Uterus, endometrium, myomectomy/curettage: - Fragments of smooth muscle consistent with leiomyoma. - Fragments of secretory endometrium. - Fragments of benign endocervical mucosa. MICROSCOPIC DESCRIPTION Slides are reviewed. GROSS DESCRIPTION A. Received in formalin labeled with the patient's name and date of . Designated as " endometrial curettings and fibroid" is a 3.4 x 3.1 x 0.9 cm aggregate of todd-pink to white, irregular rubbery tissue fragments and hemorrhagic mucoid material. Entirely submitted in 3 cassettes. ID 02/04/2025 CPT:[id number]
[2025-02-04] MEDS: Lidocaine 1% (5 ml sdv) 5 ML Vial 3 ML IV (08:46)
[2025-02-04] MEDS: Lidocaine 1% /Epi 1:100 (20ml) 20 ML Vial (08:59)
[2025-02-04] MEDS: fentaNYL 100 MCG/2 ML Ampul IV (09:02)
[2025-02-04] MEDS: Levonorgestrel IUD (Liletta) 1 EACH INTRA-UTER (09:15)
--- NOTE | 2025-02-04 09:20 | OP.PCM_ITS ---
Operative Report (Standard) Operative Information Date of Procedure: 02/04/25 Pre-Operative Diagnosis: Aub, submucosal fibroid, IUD insertion Post-Operative Diagnosis: Same Surgery/Procedure Performed: Hysteroscopy D&C with Fibroid resection and IUD insertion hot frame tender: Yes Habilitation Training Specialist: Leora Gardiner MS3 Tasks completed by rn first assist: Retracting Type of Anesthesia: MAC/Supplemental/Local RN Documented Start/Stop Times: Operation Date: 02/04/25 08:45 Case Time Into Pre-Op 02/04/25 07:28 Out of Pre-Op 02/04/25 08:39 Anesthesia Start 02/04/25 08:43 Into Room 02/04/25 08:43 Procedure Start 02/04/25 08:57 Procedure Start Time: 08:57 Procedure Stop Time: 09:16 Select all DRAINS/GRAFTS/IMPLANTS that apply: None Estimated Blood Loss: 10 Fluids Replaced: 500 Specimen collected: Yes Description of specimen(s) removed: endometrial curettings and uterine fibroid Description of surgery: The patient was taken to the OR where she was prepped and draped in dorsal lithotomy position. The weighted speculum was placed in the vagina and the anterior lip of the cervix was grasped with a single-tooth tenaculum. A paracervical block was administered with [1% lidocaine with 1-100,000 epinephrine solution]. The cervix was dilated serially with Hegar dilators. The Symphion hysteroscope was placed into the uterine cavity and the above findings were noted. Bilateral tubal ostia [were] identified. The Symphion resection device was readied and inserted. The fibroid was removed with its entirety down to the stalk and a D&C was done then of the endometrial cavity visually with the Symphion device.. The instruments were removed from the vagina. The specimen was handed off and sent to pathology. The uterus sounded to 8-1/2 cm and the Liletta IUD was then inserted in the usual sterile fashion and the strings cut to 2 cm. All sponge and needle counts were correct. Vaginal sweep was performed by me. The patient was awakened and taken to the recovery room in stable condition. Calculated hysteroscopic fluid deficit was 900 cc of normal saline Surgical Findings: Intracavitary fibroid on stalk in left upper fundus, lush endometrium, normal endocervix Complications Complications: No Admit VTE Documentation VTE Present on Admission: No VTE Mechan Device Prophylaxis: SCD's VTE Pharm Prophylaxis ordered?: No
--- NOTE | 2025-02-04 09:28 | PCM.POST.ANE ---
Anesthesia: Postop Eval I Current Vital Signs Temperature: 97.4 F Pulse Rate: 79 Blood Pressure: 108/71 Respiratory Rate: 16 Pulse Ox: 98 Oxygen Delivery Method: Room Air Assessment Airway patent: Yes Spontaneous unlabored respirations: Yes Mental status: Awake and Calm nausea: No Vomiting: No Anesthesia Complication: No Fluid Hydration Crystalloid volume administer (ml): 500 Total IV fluid infused: 500 Progress Note Anesthesia document: Postop Eval 1 completed: Yes
--- NOTE | 2025-02-04 09:32 | POSTOPAN2_ITS ---
Anesthesia Postop Eval I Sum Postop Eval Completion status Anesthesia document: Postop Eval 1 completed: Yes Anesthesia Postop Eval I Summary Anesthesia Postop Eval I Summary: Anesthesia Postop Eval I: Assessment Summary Airway patent Yes 02/04/25 09:29 MACHINE CARTON [email or web address].[email or web address] Spontaneous unlabored Yes 02/04/25 09:29 MACHINE CARTON MARKER.GDOTT respirations Mental status Awake,Calm 02/04/25 09:29 MACHINE CARTON MARKER.GDOTT nausea No 02/04/25 09:29 MACHINE CARTON MARKER.GDOTT Vomiting No 02/04/25 09:29 MACHINE CARTON MARKER.GDOTT Anesthesia Postop Eval I: Fluid Summary Crystalloid volume administer 500 02/04/25 09:29 MACHINE CARTON MARKER.GDOTT (ml) Colloids volume administered ( ml) Blood Product volume administered (ml) Total IV fluid infused 500 02/04/25 09:29 MACHINE CARTON MARKER.GDOTT Anesthesia Postop Eval I: Summary Notes Anesthesia Complication No 02/04/25 09:29 MACHINE CARTON MARKER.GDOTT Anesthesia Complication Comment: Post-operative progress note Anesthesia: Postop Eval II Evaluation Mental status: Awake Pain Level: 0 nausea: No Vomiting: No Complications Anesthesia Complication: No
--- NOTE | 2025-02-04 09:32 | PCM.POSTANE2 ---
Anesthesia Postop Eval I Sum Postop Eval Completion status Anesthesia document: Postop Eval 1 completed: Yes Anesthesia Postop Eval I Summary Anesthesia Postop Eval I Summary: Anesthesia Postop Eval I: Assessment Summary Airway patent Yes 02/04/25 09:29 MUSIC EXECUTIVE.[email or web address] Spontaneous unlabored Yes 02/04/25 09:29 MUSIC EXECUTIVE.GDOTT respirations Mental status Awake,Calm 02/04/25 09:29 MUSIC EXECUTIVE.GDOTT nausea No 02/04/25 09:29 MUSIC EXECUTIVE.GDOTT Vomiting No 02/04/25 09:29 MUSIC EXECUTIVE.GDOTT Anesthesia Postop Eval I: Fluid Summary Crystalloid volume administer 500 02/04/25 09:29 MUSIC EXECUTIVE.GDOTT (ml) Colloids volume administered ( ml) Blood Product volume administered (ml) Total IV fluid infused 500 02/04/25 09:29 MUSIC EXECUTIVE.GDOTT Anesthesia Postop Eval I: Summary Notes Anesthesia Complication No 02/04/25 09:29 MUSIC EXECUTIVE.GDOTT Anesthesia Complication Comment: Post-operative progress note Anesthesia: Postop Eval II Evaluation Mental status: Awake Pain Level: 0 nausea: No Vomiting: No Complications Anesthesia Complication: No
== END 2025-02-04 10:28 | disposition home or self-care (01) ==
LOC: SDC 07:18 → AC 07:21
PROVIDERS: Referring Provider Obstetrics & Gynecology; Visit Provider Obstetrics & Gynecology
DX: D25.9 Leiomyoma of uterus, unspecified (principal); Z87.891 Personal history of nicotine dependence; Z30.430 Encounter for insertion of intrauterine contraceptive device; N85.4 Malposition of uterus; N92.0 Excessive and frequent menstruation with regular cycle
CPT/HCPCS: 58558; 58300; 00952; 81025; 88305; J2405